=== PATIENT | female | born 1940 | race Caucasian/White ===

== ENCOUNTER → 2017-01-03 | Outpatient (REF) ==
[~2017-01-03] MED LIST: AMOXICILLIN875 MG PO; ASPIRIN 81M81 MG/TA2 PO; B-12 500 MCG PO; BETAPACEAF120 PO; COREG 25MG25 MG/TAB PO; COREG25 MG PO; DIOVAN HCT 25 M1 TA1 PO; DIOVAN/HCT 12.51 TA1 PO; ELIQUIS 5MG PO; GLUCOPHAGE1000 MG PO; KLOR-CON M2020 MEQ PO; LASIX 40MG TABL40 MG PO; LEVEMIR FLEX100 U/ML SQ; TRULICITY1.5 MG/0.5 SQ; TYLENOL 325MG325 MG PO; VITAMIN D31000 IU PO; ZYLOPRIM 300MG300 MG PO
[2017-01-03 11:41] LABS: BASO # 0.1 (0.0-0.2); BASO % 0.6 % (0.0-2.0); EOS # 0.1 (0.0-0.7); EOS % 1.4 % (0-4.0); GRAN # 6.5 (1.4-6.5); HEMOGLOBIN 11.2 g/dl (12.5-16.0); LYMPH # 0.6 (1.2-3.4); LYMPH % 8.1 % (20.0-51.0); MEAN CELL VOLUME 92 fl (80.0-100.0); MEAN CORPUSCULAR HEMOGLOBIN 29 pg (27.0-31.0); MEAN CORPUSCULAR HGB CONC 31 g/dl (33.0-37.0); MEAN PLATELET VOLUME 9.9 fl (7.4-10.4); MONO # 0.4 (0.1-0.6); MONO % 5.6 % (1.7-9.3); PLATELET COUNT 286 K/mm3 (130-400); RED BLOOD COUNT 3.89 M/mm3 (4.10-5.30); WHITE BLOOD COUNT 7.7 K/mm3 (4.8-10.8)
[2017-01-03 11:42] LABS: HEMATOCRIT 35.7 % (37.0-47.0)
[2017-01-03 12:09] LABS: CREATININE, serum 1.53 mg/dL (0.52-1.25); POTASSIUM 4.9 mmol/L (3.4-5.0)
== END ==
LOC: ZCOL.LAB 11:27
DX: I10 Essential (primary) hypertension (principal); E11.9 Type 2 diabetes mellitus without complications; M43.26 Fusion of spine, lumbar region

== ENCOUNTER → 2018-03-05 | Outpatient (CLI) | payer MEDICARE, BC | LOC: COL.RAD 10:21 | DX: N30.20 Other chronic cystitis without hematuria (principal) ==

== ENCOUNTER 2018-11-29 08:01 | Day surgery (SDC) | payer MEDICARE, BC ==
[2018-11-29] VITALS (7 sets, daily range): BP systolic 115–138; BP diastolic 58–72; PULSE 57–64; TEMP 97.8
[~2018-11-29] VITALS: Ht 170.2 cm; Wt 96.6 kg
[~2018-11-29 08:01] MED LIST changes: +DEMADEX 20MG20 M1 PO; -DIOVAN/HCT 12.51 TA1 PO; -LASIX 40MG TABL40 MG PO
[2018-11-29 08:56] LABS: HEMOGLOBIN 12.3 g/dl (12.5-16.0); MEAN CELL VOLUME 89 fl (80.0-100.0); MEAN CORPUSCULAR HEMOGLOBIN 29 pg (27.0-31.0); MEAN CORPUSCULAR HGB CONC 32 g/dl (33.0-37.0); MEAN PLATELET VOLUME 10.7 fl (7.4-10.4); PLATELET COUNT 184 K/mm3 (130-400); RED BLOOD COUNT 4.26 M/mm3 (4.10-5.30); REDCELL DISTRIBUTION WIDTH-CV 14.2 % (11.5-14.5)
[2018-11-29] MEDS ORDERED: TURMERIC500 MG PO (08:58)
[2018-11-29] MEDS ORDERED: PACERONE200 MG PO (08:59)
[2018-11-29] MEDS ORDERED: MONUROL 3 GM3 G/PKT (09:01)
[2018-11-29 09:33] LABS: INR 1.5 (0.8-3.0); PROTHROMBIN TIME 17.6 SECONDS (9.7-12.8)
[2018-11-29] MEDS ORDERED: CORDARONE200 MG/TAB PO (09:33)
[2018-11-29 09:36] LABS: CALCIUM 9.2 mg/dL (8.4-10.2); CREATININE, serum 1.72 (0.52-1.25); MAGNESIUM 2.1 mg/dL (1.6-2.3); PARTIAL THROMBOPLASTIN TIME 37.8 SECONDS (26.0-37.0); POTASSIUM 4.3 mmol/L (3.4-5.0)
--- NOTE | 2018-11-29 10:00 | NUR ---
Cardioversion complete, pt awake and alert,pwd, sr rate 60's on monitor, report from Nicholas RN. Pt drinking water with no problem. Friend at bs.
[2018-11-29 10:06] LABS: THYROID STIMULATING HORMONE 5.28 uIU/mL (0.465-4.680)
--- NOTE | 2018-11-29 11:30 | NUR ---
Pt ready for discharge. post procedure EKG has been obtained. pt has remainedin sinus rhythm with no ectopy noted. Pt is dressed and ambulatory in room with no problem, dizziness etc. IV dc'd with cath intact, dressing applied. She is transported to exit via wheelchair after reviewing f/u and discharge instructions r/t procedure and sedation. pt verbalized understanding. no concerns expressed at time of departure.
== END 2018-11-29 11:45 | disposition home or self-care (01) ==
LOC: COL.CAR 08:01
PROVIDERS: Internal Medicine Cardiovascular Disease
DX: I48.0 Paroxysmal atrial fibrillation (principal); R07.89 Other chest pain; I95.9 Hypotension, unspecified; Z85.038 Personal history of other malignant neoplasm of large intestine; E11.9 Type 2 diabetes mellitus without complications; I10 Essential (primary) hypertension; G47.33 Obstructive sleep apnea (adult) (pediatric); Z90.710 Acquired absence of both cervix and uterus; I34.0 Nonrheumatic mitral (valve) insufficiency; Z79.899 Other long term (current) drug therapy; Z87.891 Personal history of nicotine dependence; Z80.3 Family history of malignant neoplasm of breast; Z82.49 Family history of ischemic heart disease and other diseases of the circulatory system; Z88.6 Allergy status to analgesic agent; Z88.5 Allergy status to narcotic agent; Z79.01 Long term (current) use of anticoagulants; Z90.49 Acquired absence of other specified parts of digestive tract; M10.9 Gout, unspecified; M19.90 Unspecified osteoarthritis, unspecified site; M43.6 Torticollis
CPT/HCPCS: J2704; J7120

== ENCOUNTER → 2020-03-31 | Day surgery (SDC) | payer MEDICARE, BC ==
[~2020-03-31] MED LIST changes: +CALCITRIOL PO; +CARDIZEM CD 24240 MG PO; +CORDARONE200 MG/TAB PO; +FLORAJEN A20 Billion PO; +MONUROL 3 GM3 G/PKT; +MULTAQ400 MG PO; +NORVASC2.5 MG PO; +PACERONE200 MG PO; +REVATIO20 MG PO; +SYNTHROID0.05 MG/TA PO; +THERACRAN650 MG PO; +TURMERIC500 MG PO; +ULORIC40 MG PO; +ZAROXOLYN 2.52.5 MG PO
== END ==
LOC: COL.CAR 03-25 09:00
DX: I48.92 Unspecified atrial flutter (principal); E11.22 Type 2 diabetes mellitus with diabetic chronic kidney disease; I12.9 Hypertensive chronic kidney disease with stage 1 through stage 4 chronic kidney disease, or unspecified chronic kidney disease; N18.9 Chronic kidney disease, unspecified; G47.33 Obstructive sleep apnea (adult) (pediatric); R00.1 Bradycardia, unspecified; I48.0 Paroxysmal atrial fibrillation; M10.9 Gout, unspecified; R60.0 Localized edema; Z79.899 Other long term (current) drug therapy; Z79.01 Long term (current) use of anticoagulants; Z87.891 Personal history of nicotine dependence; Z80.3 Family history of malignant neoplasm of breast; Z79.4 Long term (current) use of insulin; Z88.5 Allergy status to narcotic agent; Z88.8 Allergy status to other drugs, medicaments and biological substances; Z88.3 Allergy status to other anti-infective agents; Z79.2 Long term (current) use of antibiotics
CPT/HCPCS: J1940

== ENCOUNTER 2020-09-01 09:13 | Day surgery (SDC) | payer MEDICARE, BC ==
[~2020-09-01] VITALS: Ht 170.2 cm; Wt 82.6 kg
[2020-09-01] VITALS (14 sets, daily range): BP systolic 159–199; BP diastolic 46–101; PULSE 40–62; TEMP 97.3–98.1
[~2020-09-01 09:13] MED LIST changes: -CALCITRIOL PO; -CARDIZEM CD 24240 MG PO; -FLORAJEN A20 Billion PO; -MULTAQ400 MG PO; -NORVASC2.5 MG PO; -REVATIO20 MG PO; -SYNTHROID0.05 MG/TA PO; -THERACRAN650 MG PO; -ULORIC40 MG PO; -ZAROXOLYN 2.52.5 MG PO
[2020-09-01 10:08] LABS: BASO % 0.9 % (0.0-2.0); EOS # 0.1 (0.0-0.7); EOS % 1.7 % (0-4.0); GRAN # 2.4 (1.4-6.5); GRAN % 67.6 % (42.2-75.2); HEMOGLOBIN 11.1 g/dl (12.5-16.0); LYMPH # 0.7 (1.2-3.4); LYMPH % 18.6 % (20.0-51.0); MEAN CELL VOLUME 81 fl (80.0-100.0); MEAN CORPUSCULAR HEMOGLOBIN 25 pg (27.0-31.0); MEAN CORPUSCULAR HGB CONC 31 g/dl (33.0-37.0); MEAN PLATELET VOLUME 9.9 fl (7.4-10.4); MONO # 0.4 (0.1-0.6); MONO % 10.9 % (1.7-9.3); PLATELET COUNT 192 K/mm3 (130-400); RED BLOOD COUNT 4.41 M/mm3 (4.10-5.30); REDCELL DISTRIBUTION WIDTH-CV 17.5 % (11.5-14.5)
[2020-09-01 10:09] LABS: HEMATOCRIT 35.8 % (37.0-47.0)
[2020-09-01 10:15] LABS: INR 1.1 (0.8-3.0); PROTHROMBIN TIME 11.9 SECONDS (9.7-12.8)
[2020-09-01] MEDS ORDERED: CORDARONE200 MG/TAB PO (10:18)
[2020-09-01 10:20] LABS: CALCIUM 8.8 mg/dL (8.4-10.2); CREATININE, serum 1.94 (0.52-1.25); POTASSIUM 3.9 mmol/L (3.4-5.0)
[2020-09-01] MEDS ORDERED: ULORIC40 MG PO (10:24)
[2020-09-01] MEDS ORDERED: SYNTHROID0.05 MG/TA PO (10:25)
[2020-09-01] MEDS ORDERED: NORVASC2.5 MG PO (10:25)
[2020-09-01] MEDS ORDERED: CALCITRIOL PO (10:26)
[2020-09-01] MEDS ORDERED: FLORAJEN A20 Billion PO (10:27)
[2020-09-01] MEDS ORDERED: THERACRAN650 MG PO (10:27)
--- NOTE | 2020-09-01 11:54 | NUR ---
SEE MERGE DOCUMENTATION FOR MEDICATION ADMINISTRATION AND INTRA/POST PROCEDURE SEDATION ASSESSMENTS.
--- NOTE | 2020-09-01 12:58 | NUR ---
Pt. back from PACU, status post heart cath and pacemaker. No s/s hematoma to left chest. Pt. alert and able to answer all questions. Pt. able to get OOB to bathroom to void. Pt.'s BP elevated, CHRIS Marrero notified. New medications for BP meds plan to be given, per Elida's orders.
--- NOTE | 2020-09-01 18:00 | NUR ---
Post-op checks completed, pt.'s post-op status WNL. Pacemaker site C/D/I, free of any hardness to site and free of warmth. Pt. reports mild discomfort to left shoulder but denies PRN tylenol at this time. +CSM, +PP.
--- NOTE | 2020-09-01 19:01 | NUR ---
Pt.'s BP remains elevated. CHRIS Marrero attempted to be called, but pager did not go through on the phone. Oncoming BAM Gao made aware.
--- NOTE | 2020-09-01 19:29 | NUR ---
reported bp of 176/[address] simpson , orders recieved for biostrolol dose now and then daily.
--- NOTE | 2020-09-01 21:06 | NUR ---
NEW BP MEDS GIVEN FOR HYPERTENSION TONIGHT, PT V/U OF MEDS.
[2020-09-02 00:26] VITALS: BP 139/55; PULSE 61; TEMP 98.4
[2020-09-02 05:27] VITALS: BP 143/58; PULSE 58; TEMP 98
--- NOTE | 2020-09-02 05:40 | NUR ---
rested through the night without incident. Dsg to rt upper chest c/d/i.
--- NOTE | 2020-09-02 06:50 | NUR ---
Bedside shift report complete, report received from BAM Gao. Pt. OOB w/ standby assist using cane to get to chair. Pt. tolerated ambulation well. Pt makes needs known. Pt sitting up and calling for breakfast at this time. Call light in reach, safety maintained.
[2020-09-02 07:27] VITALS: BP 162/60; PULSE 60; TEMP 98.1
--- NOTE | 2020-09-02 08:12 | NUR ---
PT. progressing with plan of care. Pt. OOB to chair eating breakfast. Pt. inquiring if Dr. Lindsay will round on patient today. This RN reports the PA or Dr. Lindsay will come see her today and discuss her plan of care. Pacemaker site to L chest c/d/i.
[2020-09-02] MEDS ORDERED: REVATIO20 MG PO (10:07)
[2020-09-02] MEDS ORDERED: MULTAQ400 MG PO (10:09)
[2020-09-02] MEDS ORDERED: CARDIZEM CD 24240 MG PO (10:10)
--- NOTE | 2020-09-02 10:24 | NUR ---
MERT met with the patient to discuss discharge plan. The patient lives alone in [place]. She reports independence with ADLs and has two canes and a walker. The patient's PCP is Dr. Daniel Lim and she receives her medications from [facility]. She reports no difficulties obtaining her meds. The patient does not have a DPOA-HC in EMR, but she states that she does have one completed and that she may have a copy in her car. She states that her DPOA-HC is her friend, Samy Marsh (ph#[phone]). The patient plans to return home upon discharge. She states that Samy will be transporting her home. No additional needs at this time. *Discharge plan: home*
[2020-09-02 11:45] LABS: CALCIUM 9.1 mg/dL (8.4-10.2); CREATININE, serum 1.77 (0.52-1.25); POTASSIUM 3.9 mmol/L (3.4-5.0)
[2020-09-02 11:54] LABS: BASO % 0.6 % (0.0-2.0); EOS # 0.1 (0.0-0.7); EOS % 1.2 % (0-4.0); GRAN # 3.9 (1.4-6.5); GRAN % 79.5 % (42.2-75.2); HEMATOCRIT 41.4 % (37.0-47.0); HEMOGLOBIN 12.8 g/dl (12.5-16.0); LYMPH # 0.5 (1.2-3.4); LYMPH % 10.8 % (20.0-51.0); MEAN CELL VOLUME 82 fl (80.0-100.0); MEAN CORPUSCULAR HEMOGLOBIN 25 pg (27.0-31.0); MEAN CORPUSCULAR HGB CONC 31 g/dl (33.0-37.0); MEAN PLATELET VOLUME 10.2 fl (7.4-10.4); MONO # 0.4 (0.1-0.6); MONO % 7.3 % (1.7-9.3); PLATELET COUNT 215 K/mm3 (130-400); RED BLOOD COUNT 5.04 M/mm3 (4.10-5.30); REDCELL DISTRIBUTION WIDTH-CV 17.7 % (11.5-14.5)
[2020-09-02 12:06] VITALS: BP 129/62; PULSE 61; TEMP 97.7
--- NOTE | 2020-09-02 13:20 | NUR ---
Pt. discharged home. IV removed,site c/d/i. Pt. agreeable with plan of care as far as folliwng up with PCP and Cardiology. Pt. agreeable with all discharge instructions and all questions answered. Pt. left unit with JORJE Womack.
== END 2020-09-02 13:45 | disposition home or self-care (01) ==
LOC: COL.CAR 09:13 → MEDICAL 13:17 → COL.CAR 09-02 13:45
PROVIDERS: Internal Medicine Cardiovascular Disease
DX: R00.1 Bradycardia, unspecified (principal); I89.0 Lymphedema, not elsewhere classified; I48.0 Paroxysmal atrial fibrillation; I27.20 Pulmonary hypertension, unspecified; I10 Essential (primary) hypertension; L81.9 Disorder of pigmentation, unspecified; L85.9 Epidermal thickening, unspecified; N28.9 Disorder of kidney and ureter, unspecified; Z79.01 Long term (current) use of anticoagulants; Z85.038 Personal history of other malignant neoplasm of large intestine; Z79.82 Long term (current) use of aspirin; Z79.899 Other long term (current) drug therapy
CPT/HCPCS: OP; C1785; C1894; C1898; J0690; J1815; J2250; J3010; J7030

== ENCOUNTER 2020-12-23 08:40 | Inpatient (IN) | payer MEDICARE, BC ==
[~2020-12-23] VITALS: Wt 85.3 kg
[2020-12-23] VITALS (8 sets, daily range): BP systolic 131–157; BP diastolic 47–74; PULSE 62–74; TEMP 97.4–98
[~2020-12-23 08:40] MED LIST changes: +CALCITRIOL PO; +CARDIZEM CD 24240 MG PO; +FLORAJEN A20 Billion PO; +MULTAQ400 MG PO; +NORVASC2.5 MG PO; +REVATIO20 MG PO; +SYNTHROID0.05 MG/TA PO; +THERACRAN650 MG PO; +ULORIC40 MG PO
[2020-12-23] MEDS ORDERED: ZAROXOLYN 2.52.5 MG PO (09:49)
[2020-12-23 10:06] LABS: BASO % 0.8 % (0.0-2.0); EOS # 0.1 K/mm3 (0.0-0.7); EOS % 2.3 % (0-4.0); GRAN # 2.9 K/mm3 (1.4-6.5); GRAN % 74.2 % (42.2-75.2); HEMOGLOBIN 10.2 g/dl (12.5-16.0); LYMPH # 0.5 K/mm3 (1.2-3.4); LYMPH % 13.4 % (20.0-51.0); MEAN CELL VOLUME 84 fl (80.0-100.0); MEAN CORPUSCULAR HEMOGLOBIN 26 pg (27.0-31.0); MEAN CORPUSCULAR HGB CONC 32 g/dl (33.0-37.0); MEAN PLATELET VOLUME 9.9 fl (7.4-10.4); MONO # 0.4 K/mm3 (0.1-0.6); PLATELET COUNT 231 K/mm3 (130-400); RED BLOOD COUNT 3.86 M/mm3 (4.10-5.30); REDCELL DISTRIBUTION WIDTH-CV 15.9 % (11.5-14.5)
[2020-12-23 10:07] LABS: HEMATOCRIT 32.4 % (37.0-47.0)
[2020-12-23 10:22] LABS: ALBUMIN 3.5 gm/dL (3.4-4.8); BILIRUBIN,TOTAL 0.5 mg/dL (0.2-1.2); CALCIUM 9.4 mg/dL (8.4-10.2); CREATININE, serum 3.25 mg/dL (0.57-1.11); POTASSIUM 3.7 mmol/L (3.5-4.5); TOTAL PROTEIN 7.1 gm/dL (6.2-8.1)
--- NOTE | 2020-12-23 11:15 | NUR ---
Patient going down to OR for HDC placement at this time, consent signed, patient has been NPO, friend present in the room
--- NOTE | 2020-12-23 12:30 | NUR ---
Patient arrived back to room 354 from OR, she had right side dialysis catheter placed, dressing C/D/I, patient is drowsy but arousable and oriented x3, vital signs stable, plans for dialysis this afternoon, she has some ice water to sip on and denies other needs at this time
--- NOTE | 2020-12-23 12:39 | NUR ---
patient returned to Medical room 354 from OR at this time, alert/oriented, vital signs stable, right HDC dressing C/d/I
--- NOTE | 2020-12-23 18:38 | NUR ---
PATIENT TOLERATED HER 1ST HD TX WITH 1L OF FLUID REMOVED TODAY. NEXT PLANNED HD TX TOMORROW, Sunday12/24/20 @ 0800.
--- NOTE | 2020-12-23 22:38 | NUR ---
PT IS MOVING INDEPENDENTLY FROM BED TO RECLINER TO BATHROOM. PT WAITED TIL ALMOST 2000 FOR FOOD TRAY. PT IS PLEASANT AND COOPERATIVE. PT TOOK ALL MEDICATIONS PRESCRIBED. PT STATED WANTED TO GET SLEEP DUE TO LONG DAY. CALL LIGHT IN REACH, NO OTHER NEEDS AT THIS TIME.
[2020-12-23 23:11] LABS: HEPATITIS B SURFACE ANTIBODY <2.0 (()); HEPATITIS B SURFACE ANTIGEN Negative (Negative); HEPATITIS C VIRUS ANTIBODY Negative (Negative)
[2020-12-24 00:12] VITALS: BP 140/46; PULSE 72; TEMP 98.7
--- NOTE | 2020-12-24 05:18 | NUR ---
PT REQUESTED TO BE LEFT ALONE MUCH POSSIBLE TONIGHT TO GET ADEQUATE SLEEP. PT REFUSED 0400 VITALS AT 0000. TOLD PT THAT WILL COME IN AT 0600 WITH MORNING MEDS, PT AGREEABLE. PT TOOK ALL MEDICATIONS, HAD UNEVENTFUL NIGHT. CALL LIGHT IN REACH, NO OTHER NEEDS AT THIS TIME.
[2020-12-24 07:35] VITALS: BP 158/70; PULSE 73; TEMP 98
[2020-12-24 07:39] LABS: EOS # 0.1 K/mm3 (0.0-0.7); EOS % 3.1 % (0-4.0); GRAN # 3.2 K/mm3 (1.4-6.5); GRAN % 76.1 % (42.2-75.2); HEMOGLOBIN 11.1 g/dl (12.5-16.0); LYMPH # 0.5 K/mm3 (1.2-3.4); MEAN CELL VOLUME 83 fl (80.0-100.0); MEAN CORPUSCULAR HEMOGLOBIN 27 pg (27.0-31.0); MEAN CORPUSCULAR HGB CONC 32 g/dl (33.0-37.0); MEAN PLATELET VOLUME 9.7 fl (7.4-10.4); MONO # 0.4 K/mm3 (0.1-0.6); MONO % 8.3 % (1.7-9.3); PLATELET COUNT 252 K/mm3 (130-400); RED BLOOD COUNT 4.17 M/mm3 (4.10-5.30)
[2020-12-24 07:44] LABS: HEMATOCRIT 34.5 % (37.0-47.0)
[2020-12-24 08:07] LABS: ALBUMIN 3.4 gm/dL (3.4-4.8); CALCIUM 10.1 mg/dL (8.4-10.2); CREATININE, serum 2.49 mg/dL (0.57-1.11); PHOSPHOROUS 2.9 mg/dL (2.3-4.7); POTASSIUM 3.8 mmol/L (3.5-4.5)
--- NOTE | 2020-12-24 11:08 | NUR ---
PATIENT TOLERATED HER 2ND HD TX WITH 2L FLUID REMOVAL TODAY. NEXT PLANNED HD TX TOMORROW, Sunday12/25/20 @ 0800.
[2020-12-24 11:22] VITALS: BP 146/80; PULSE 61; TEMP 97.6
--- NOTE | 2020-12-24 15:41 | NUR ---
workers' compensation hearings officer met with patient to discuss discharge plan.Samy along with the patient's sister Samara ([phone]) present at bedside.Patient states that she lives at home alone. Patient reports that she is fully independent with her activities of daily living and she uses canes to assist with mobility. Patient reports to having a walker as well that she uses prn and has no O2 needs. PCP is Dr. Lim and she utilizes [facility] pharmacy for perscriptions with no cost difficulty. Patient reports that she does have a DPOA-HC established and the Samy is listed as an agent. Samy states he has a copy of it but is unsure of where it is at. ' team is hopeful to get the patient started at the [place] location until an opening at the [facility] location opens up. The [place] team has offered the patient for them to arrange transportation to the [place] location. Discharge plan: Home with OP dialysis
[2020-12-24 16:43] VITALS: BP 148/61; PULSE 66; TEMP 98.2
--- NOTE | 2020-12-24 19:16 | NUR ---
PT SITTING IN BEDSIDE RECLINER. CALL LIGHT IN REACH. NO COMPLAINTS OF PAIN. PT IS PLEASANT.
[2020-12-24 19:18] VITALS: BP 137/51; PULSE 60; TEMP 97.8
--- NOTE | 2020-12-24 21:55 | NUR ---
PT ASSESSMENT COMPLETE. PT IS PLEASANT AND COOPERATIVE. PT TOOK ALL MEDICATIONS EXCEPT COLACE AND 2 UNITS OF NOVOLOG. PT STATED "I JUST ATE AND THAT IS WHY IT IS HIGH. I ONLY WANT THE LEVEMIR." PT LEGS ARE STILL SWOLLEN, THIS RN HAS NOTICED CONSIDERABLE DIFFERENCE IN LEGS SINCE LAST NIGHT. PT STATED SHE THOUGHT A INFORMATICA ARCHITECT WOULD OF VISITED TODAY TO HELP GO OVER HOW TO COOK AT HOME WITH A LOW SODIUM DIET. PT EXPRESSED SOME CONCERN OVER NEW DIET AND STICKING TO THE PLAN OF CARE. PT STATED SHE FELT A DIFFERENCE ALREADY AFTER 2 ROUNDS OF DIAYLSIS. SHE STATED THAT SHE WANTED TO DO EVERYTHING RIGHT IF SHE WAS TO BE DOING THIS TREATMENT PLAN IN ORDER TO REMAIN HEALTHY SHE CAN BE. BED IN LOWEST POSITION, WHEELS LOCKED. CALL LIGHT IN REACH. PT DENIES ANY PAIN. NO OTHER NEEDS. PT REQUESTED TO SLEEP THROUGH NIGHT AND SKIP MIDNIGHT VITALS.
[2020-12-25 04:19] VITALS: BP 140/55; PULSE 72; TEMP 97.9
--- NOTE | 2020-12-25 05:38 | NUR ---
PT SLEPT MAJORITY OF NIGHT. UNEVENTFUL. PT UNDERSTANDS PLAN OF CARE, SHOWS INTEREST IN RENAL DIET AND MAKING APPROPRIATE CHANGES IN DIET TO ACCOMADATE DIAYLSIS. PT PLEASANT AND DENIES ANY PAIN. WHEELS LOCKED, BED IN LOWEST POSITION, CALL LIGHT IN REACH, NO OTHER NEEDS AT THIS TIME.
[2020-12-25 07:17] VITALS: BP 146/61; PULSE 67; TEMP 97.7
[2020-12-25 07:24] LABS: ALBUMIN 3.6 gm/dL (3.4-4.8); CALCIUM 10.2 mg/dL (8.4-10.2); CREATININE, serum 2.48 mg/dL (0.57-1.11); PHOSPHOROUS 3.2 mg/dL (2.3-4.7); POTASSIUM 3.8 mmol/L (3.5-4.5)
[2020-12-25 07:48] LABS: BASO % 0.9 % (0.0-2.0); EOS # 0.2 K/mm3 (0.0-0.7); EOS % 4.1 % (0-4.0); GRAN # 3.1 K/mm3 (1.4-6.5); GRAN % 69.6 % (42.2-75.2); HEMATOCRIT 37.6 % (37.0-47.0); HEMOGLOBIN 11.7 g/dl (12.5-16.0); LYMPH # 0.7 K/mm3 (1.2-3.4); LYMPH % 16.9 % (20.0-51.0); MEAN CELL VOLUME 86 fl (80.0-100.0); MEAN CORPUSCULAR HEMOGLOBIN 27 pg (27.0-31.0); MEAN CORPUSCULAR HGB CONC 31 g/dl (33.0-37.0); MEAN PLATELET VOLUME 9.9 fl (7.4-10.4); MONO # 0.4 K/mm3 (0.1-0.6); PLATELET COUNT 244 K/mm3 (130-400); REDCELL DISTRIBUTION WIDTH-CV 16.3 % (11.5-14.5)
[2020-12-25] MEDS ORDERED: DEMADEX 20MG20 M1 PO (12:11)
[2020-12-25 12:34] VITALS: BP 146/68; PULSE 62; TEMP 97.8
--- NOTE | 2020-12-25 12:35 | NUR ---
Patient tolerated HD tx with 2L of fluid removed. Next planned HD tx on Sunday12/27/20 @ [facility] @ [place] @ 2619.
--- NOTE | 2020-12-25 15:30 | NUR ---
PT ALERT AND ORIENTED. PT LUNGS CLEAR TO AUSCULTATION. S1,S2 HEARD. PT ABLE TO AMBULATE INDEPENDENLTY WITH CANES. PT HAS BILATERAL LOWER EXTREMITY EDEMA 1+. PT PULSES 2+ IN ALL EXTREMITIES. PT DENIES NEEDS, ABLE TO CONVERSE FREELY.
--- NOTE | 2020-12-25 15:32 | NUR ---
PT DISCHARGING. PT INT DISCONTINUED, HEALTH SUMMARY AND EDUCATION GIVEN TO BEST OF ABILITY. PT VISITOR AT BEDSIDE TO HELP PT. PT TO BE WHEELED OUT BY [facility] EMPLOYEE.
== END 2020-12-25 15:33 | disposition home or self-care (01) | DRG 673 ==
LOC: SDCO 08:40 → MEDICAL 08:55 → SDCO 12:00 → MEDICAL 12-25 15:33
PROVIDERS: Surgery; ADMIT Internal Medicine Nephrology
PROC: 02H633Z Insertion of Infusion Device into Right Atrium, Percutaneous Approach (ICD-10-PCS; 2020-12-23)
PROC: B5181ZA Fluoroscopy of Superior Vena Cava using Low Osmolar Contrast, Guidance (ICD-10-PCS; 2020-12-23)
PROC: 5A1D70Z Performance of Urinary Filtration, Intermittent, Less than 6 Hours Per Day (ICD-10-PCS; 2020-12-23)
PROC: 0JH63XZ Insertion of Tunneled Vascular Access Device into Chest Subcutaneous Tissue and Fascia, Percutaneous Approach (ICD-10-PCS; principal; 2020-12-23 12:00)
DX: I12.0 Hypertensive chronic kidney disease with stage 5 chronic kidney disease or end stage renal disease (principal); N18.6 End stage renal disease; E11.22 Type 2 diabetes mellitus with diabetic chronic kidney disease; M10.9 Gout, unspecified; I48.91 Unspecified atrial fibrillation; D63.1 Anemia in chronic kidney disease; E87.70 Fluid overload, unspecified; Z20.822 Contact with and (suspected) exposure to COVID-19; Z96.651 Presence of right artificial knee joint; Z85.038 Personal history of other malignant neoplasm of large intestine; Z79.4 Long term (current) use of insulin; Z23 Encounter for immunization
CPT/HCPCS: J0690; J1644; J1756; J1815; J2704; J7030

== ENCOUNTER 2021-02-08 09:07 | Day surgery (SDC) | payer MEDICARE, BC ==
[~2021-02-08] VITALS: Ht 160 cm; Wt 77.7 kg
[~2021-02-08 09:07] MED LIST changes: +ZAROXOLYN 2.52.5 MG PO
[2021-02-08] MEDS ORDERED: CARDIZEM CD 24240 MG PO (09:25)
[2021-02-08] MEDS ORDERED: MULTAQ400 MG PO (09:26)
[2021-02-08] MEDS ORDERED: REVATIO20 MG PO (09:30)
[2021-02-08] MEDS ORDERED: DEMADEX 20MG20 M1 PO (09:32)
[2021-02-08] MEDS ORDERED: D3-5050000 IU PO (09:33)
[2021-02-08 10:59] LABS: INR 1.7 (0.8-3.0); PROTHROMBIN TIME 19.1 SECONDS (9.7-12.8)
[2021-02-08 11:02] LABS: PARTIAL THROMBOPLASTIN TIME 33.3 SECONDS (26.0-37.0)
[2021-02-08 11:04] LABS: BASO # 0.1 K/mm3 (0.0-0.2); BASO % 1.5 % (0.0-2.0); EOS # 0.1 K/mm3 (0.0-0.7); EOS % 1.8 % (0.0-4.0); GRAN # 2.8 K/mm3 (1.4-6.5); HEMATOCRIT 37.5 % (37.0-47.0); HEMOGLOBIN 12.3 g/dl (12.5-16.0); LYMPH # 0.6 K/mm3 (1.2-3.4); LYMPH % 15.4 % (20.0-51.0); MEAN CELL VOLUME 87 fl (80.0-100.0); MEAN CORPUSCULAR HEMOGLOBIN 29 pg (27-31); MEAN CORPUSCULAR HGB CONC 33 g/dl (33.0-37.0); MEAN PLATELET VOLUME 9.6 fl (7.4-10.4); MONO # 0.4 K/mm3 (0.1-0.6); PLATELET COUNT 183 K/mm3 (130-400); RED BLOOD COUNT 4.29 M/mm3 (4.10-5.30)
[2021-02-08 11:07] LABS: CALCIUM 9.3 mg/dL (8.4-10.2); CREATININE, serum 3.81 mg/dL (0.57-1.11); MAGNESIUM 2.2 mg/dL (1.6-2.6)
[2021-02-08 11:22] VITALS: BP 139/75; PULSE 69; TEMP 98.6
[2021-02-08 11:27] LABS: TSH w REFLEX 3.443 uIU/mL (0.350-4.940)
[2021-02-08 12:30] VITALS: BP 123/79; PULSE 70
[2021-02-08 12:45] VITALS: BP 140/63; PULSE 70
[2021-02-08 13:00] VITALS: BP 142/69; PULSE 79
[2021-02-08] MEDS ORDERED: PACERONE400 MG PO (13:05)
--- NOTE | 2021-02-08 14:00 | NUR ---
DC instructions reviewed with pt and , both express understanding. She has tolerated PO fluids without issue. She is steady on feet in room. INT DC'd with catheter intact. She is assisted out to 's car by wheelchair.
== END 2021-02-08 14:00 | disposition home or self-care (01) ==
LOC: COL.CAR 09:07
PROVIDERS: Internal Medicine Cardiovascular Disease
DX: I48.91 Unspecified atrial fibrillation (principal); I12.9 Hypertensive chronic kidney disease with stage 1 through stage 4 chronic kidney disease, or unspecified chronic kidney disease; I27.20 Pulmonary hypertension, unspecified; E11.22 Type 2 diabetes mellitus with diabetic chronic kidney disease; N18.9 Chronic kidney disease, unspecified; G47.33 Obstructive sleep apnea (adult) (pediatric); M19.90 Unspecified osteoarthritis, unspecified site; K21.9 Gastro-esophageal reflux disease without esophagitis; E11.9 Type 2 diabetes mellitus without complications; E07.9 Disorder of thyroid, unspecified; Z79.890 Hormone replacement therapy; Z79.899 Other long term (current) drug therapy; Z79.01 Long term (current) use of anticoagulants; Z95.0 Presence of cardiac pacemaker; Z85.038 Personal history of other malignant neoplasm of large intestine
CPT/HCPCS: J2704

== ENCOUNTER → 2021-02-22 | Outpatient (CLI) | payer MEDICARE, BC ==
[~2021-02-22] MED LIST changes: +D3-5050000 IU PO; +PACERONE400 MG PO
== END ==
LOC: COL.VAS 14:07
DX: N18.6 End stage renal disease (principal); Z99.2 Dependence on renal dialysis

== ENCOUNTER 2021-03-16 09:55 | Day surgery (SDC) | payer MEDICARE, BC ==
[~2021-03-16] VITALS: Ht 167.7 cm; Wt 74.8 kg
[2021-03-16] VITALS (7 sets, daily range): BP systolic 136–149; BP diastolic 67–80; PULSE 69–73; TEMP 97.8
[2021-03-16 10:53] LABS: HEMATOCRIT 39.5 % (37.0-47.0); MEAN CELL VOLUME 89 fl (80.0-100.0); MEAN CORPUSCULAR HEMOGLOBIN 29 pg (27-31); MEAN CORPUSCULAR HGB CONC 33 g/dl (33.0-37.0); MEAN PLATELET VOLUME 9.7 fl (7.4-10.4); PLATELET COUNT 169 K/mm3 (130-400); RED BLOOD COUNT 4.42 M/mm3 (4.10-5.30); REDCELL DISTRIBUTION WIDTH-CV 15.5 % (11.5-14.5)
[2021-03-16] MEDS ORDERED: PACERONE200 MG PO (11:15)
[2021-03-16 11:17] LABS: CALCIUM 8.9 mg/dL (8.4-10.2); CREATININE, serum 3.65 mg/dL (0.57-1.11); MAGNESIUM 1.9 mg/dL (1.6-2.6)
[2021-03-16 11:25] LABS: INR 1.5 (0.8-3.0); PROTHROMBIN TIME 16.1 SECONDS (9.7-12.8)
[2021-03-16 11:28] LABS: PARTIAL THROMBOPLASTIN TIME 33.1 SECONDS (26.0-37.0)
[2021-03-16 11:37] LABS: THYROID STIMULATING HORMONE 2.162 uIU/mL (0.350-4.940)
--- NOTE | 2021-03-16 14:00 | NUR ---
Discharge instructions given to pt.Pt verbalizes understanding.INT removed,catheter tip intact.Pt escorted out via wheelchair by this nurse.
== END 2021-03-16 15:15 ==
LOC: COL.CAR 09:55
PROVIDERS: Internal Medicine Cardiovascular Disease
DX: I48.0 Paroxysmal atrial fibrillation (principal); I10 Essential (primary) hypertension; I49.5 Sick sinus syndrome; I15.0 Renovascular hypertension; E11.9 Type 2 diabetes mellitus without complications; G47.33 Obstructive sleep apnea (adult) (pediatric); Z90.10 Acquired absence of unspecified breast and nipple; Z79.899 Other long term (current) drug therapy; Z79.01 Long term (current) use of anticoagulants; Z79.890 Hormone replacement therapy; Z87.891 Personal history of nicotine dependence; Z95.0 Presence of cardiac pacemaker; Z80.3 Family history of malignant neoplasm of breast
CPT/HCPCS: J2704

== ENCOUNTER 2021-04-28 08:33 | Day surgery (SDC) | payer MEDICARE, BC ==
[~2021-04-28] VITALS: Ht 167.6 cm; Wt 71.6 kg
[2021-04-28 09:31] VITALS: BP 134/61; PULSE 76; TEMP 97.5
[2021-04-28 09:54] LABS: CALCIUM 8.8 mg/dL (8.4-10.2); CREATININE, serum 3.33 mg/dL (0.57-1.11); POTASSIUM 3.2 mmol/L (3.5-4.5)
[2021-04-28 12:45] VITALS: BP 113/44; PULSE 74; TEMP 98.4
--- NOTE | 2021-04-28 12:45 | NUR ---
PT TO BAY 6 PER CART FROM OR. RECEIVED REPORT FROM BAM RAMIREZ AND MARCI WAGNER. VS OBTAINED. REORIENTED PT TO ROOM AND CALL LIGHT. CALL LIGHT WITHIN REACH. PT DENIES ANY PAIN AT THIS TIME. WILL CONTINUE TO MONITOR PT.
[2021-04-28 13:00] VITALS: BP 129/56; PULSE 69
--- NOTE | 2021-04-28 13:00 | NUR ---
PT DESAT TO 85%. CONSISTENTLY STAYING BETWEEN 87%-89%. APPLIED 2L PER NC. PT RESPONDED WELL. O2 SATS 92-94%. PT DENIES ANY NEEDS AT THIS TIME. PT TOLERATING CRANBERRY JUICE WITHOUT DIFFICULTY. FRIEND AT BEDSIDE. WILL CONTINUE TO MONITOR PT.
[2021-04-28 13:15] VITALS: BP 122/51; PULSE 69
--- NOTE | 2021-04-28 13:15 | NUR ---
PT CONTINUES TO DENY ANY NEEDS. PT CONTINUES ON 2L PER NC. TOLERATING WELL. PT TOLERATING CRANBERRY JUICE. WILL CONTINUE TO MONITOR.
[2021-04-28 13:30] VITALS: BP 135/54; PULSE 69
--- NOTE | 2021-04-28 13:30 | NUR ---
PT DOING WELL. TOLERATING MUFFIN. DC O2 TO SEE HOW PT DOES. WILL CONTINUE TO MONITOR PT.
[2021-04-28 13:45] VITALS: BP 129/56; PULSE 69
--- NOTE | 2021-04-28 13:45 | NUR ---
PT MAINTAING O2 WITHOUT DIFFICULTY. PT STATES SHE IS READY FOR DISCHARGE.
--- NOTE | 2021-04-28 14:30 | NUR ---
IV DC'D. TOLERATED WELL.
--- NOTE | 2021-04-28 14:45 | NUR ---
DISCHARGE EDUCATION COMPLETED WITH PT. PT VERBALIZED UNDERSTANDING OF HOME AND FOLLOW UP CARE. ALL QUESTIONS ANSWERED. DISCHARGE PAPERWORK GIVEN TO PT.
--- NOTE | 2021-04-28 15:05 | NUR ---
PT OFF UNIT PER WHEELCHAIR. PT DISCHARGE TO HOME WITH FRIEND PER PERSONAL VEHICLE.
== END 2021-04-28 15:05 | disposition home or self-care (01) ==
LOC: SDCO 08:33
PROVIDERS: Surgery
DX: N18.6 End stage renal disease (principal); L02.31 Cutaneous abscess of buttock; Z79.01 Long term (current) use of anticoagulants
CPT/HCPCS: J0690; J1644; J2405; J2704; J2795; J3010; J7120

== ENCOUNTER 2021-05-31 08:06 | Day surgery (SDC) | payer MEDICARE, BC ==
[~2021-05-31] VITALS: Ht 167.6 cm; Wt 71.5 kg
[2021-05-31 08:56] VITALS: BP 135/69; PULSE 74; TEMP 96.9
--- NOTE | 2021-05-31 09:15 | NUR ---
BMP drawn and sent to lab via [facility].
[2021-05-31 09:49] LABS: CALCIUM 8.9 mg/dL (8.4-10.2); CREATININE, serum 2.36 mg/dL (0.57-1.11); POTASSIUM 3.7 mmol/L (3.5-4.5)
[2021-05-31 10:25] VITALS: BP 122/62; PULSE 75; TEMP 96.9
--- NOTE | 2021-05-31 10:25 | NUR ---
Pt returned to bay 3 post procedure. Pt ambulated with staff by side to recliner in bay. VSS-see flowsheet. Spouse present in room. Pts leg elevated and warm blankets given. Pt also given juice per request but said she will wait to eat lunch when she is discharged. Call light placed in reach.
[2021-05-31 10:30] VITALS: BP 126/66; PULSE 70
[2021-05-31 10:45] VITALS: BP 130/62; PULSE 70
--- NOTE | 2021-05-31 11:15 | NUR ---
VS remain stable-see flowsheet. Dr Lyn in to visit post procedure. Pt tolerated oral intake. IV removed, catheter tip intact and pressure dressing applied. Pt dressed independently. DC teaching completed with pt and pts spouse, verbalized understanding. Pt taken via wheelchair to private vehicle for dc with driving. Pt left with dc packet, personal belongings including 2 wooden canes.
== END 2021-05-31 11:15 | disposition home or self-care (01) ==
LOC: SDCO 08:06
PROVIDERS: Nurse Anesthetist, Certified Registered
DX: K29.70 Gastritis, unspecified, without bleeding (principal); K44.9 Diaphragmatic hernia without obstruction or gangrene; K25.9 Gastric ulcer, unspecified as acute or chronic, without hemorrhage or perforation; R13.10 Dysphagia, unspecified; I10 Essential (primary) hypertension; Z95.0 Presence of cardiac pacemaker; Z87.891 Personal history of nicotine dependence; Z79.01 Long term (current) use of anticoagulants; Z85.048 Personal history of other malignant neoplasm of rectum, rectosigmoid junction, and anus
CPT/HCPCS: J2704; J7030

== ENCOUNTER 2021-06-08 19:38 | Inpatient (IN) | payer MEDICARE, BC ==
[~2021-06-08] VITALS: Wt 70.9 kg
[2021-06-08 20:38] LABS: BASO % 0.6 % (0.0-2.0); EOS % 0.4 % (0.0-4.0); GRAN # 4.7 K/mm3 (1.4-6.5); GRAN % 87.5 % (42.2-75.2); HEMATOCRIT 42.2 % (37.0-47.0); HEMOGLOBIN 13.5 g/dl (12.5-16.0); LYMPH # 0.3 K/mm3 (1.2-3.4); LYMPH % 5.8 % (20.0-51.0); MEAN CELL VOLUME 94 fl (80.0-100.0); MEAN CORPUSCULAR HEMOGLOBIN 30 pg (27-31); MEAN CORPUSCULAR HGB CONC 32 g/dl (33.0-37.0); MEAN PLATELET VOLUME 10.1 fl (7.4-10.4); MONO # 0.3 K/mm3 (0.1-0.6); MONO % 5.3 % (1.7-9.3); PLATELET COUNT 188 K/mm3 (130-400); RED BLOOD COUNT 4.49 M/mm3 (4.10-5.30)
[2021-06-08 20:39] LABS: INR 1.7 (0.8-3.0)
[2021-06-08 20:42] LABS: PARTIAL THROMBOPLASTIN TIME 30.1 SECONDS (26.0-37.0)
[2021-06-08 20:51] LABS: ALBUMIN 3.3 gm/dL (3.4-4.8); BILIRUBIN,TOTAL 0.6 mg/dL (0.2-1.2); CALCIUM 8.3 mg/dL (8.4-10.2); CREATININE, serum 3.85 mg/dL (0.57-1.11); POTASSIUM 3.6 mmol/L (3.5-4.5); TOTAL PROTEIN 6.6 gm/dL (6.2-8.1)
[2021-06-08 22:33] VITALS: BP 137/62; PULSE 71; TEMP 97.5
[2021-06-08] MEDS ORDERED: ZOFRAN ODT4 MG PO (23:00)
[2021-06-09 01:06] LABS: COLLECTION METHOD IN
[2021-06-09 01:14] LABS: PH 5 (5-8); SQUAMOUS EPITHELIAL None Seen /hpf (0-10); URINE APPEARANCE Turbid (CLEAR/HAZY); URINE BACTERIA Many /hpf (NONE SEEN); URINE BILIRUBIN Negative (NEGATIVE); URINE BLOOD 2+ (NEGATIVE); URINE GLUCOSE 1+ (NEGATIVE); URINE KETONE Negative (NEGATIVE); URINE LEUKOCYTE ESTERASE 2+ (NEGATIVE); URINE NITRATE Negative (NEGATIVE); URINE PROTEIN(semi-quant) 2+ (NEGATIVE); URINE RBC >50 /hpf (0-2); URINE UROBILINOGEN Negative (NEGATIVE)
[2021-06-09 01:16] LABS: URINE COLOR Straw (YELLOW)
--- NOTE | 2021-06-09 02:34 | NUR ---
PATIENT UP TO ROOM 344. ALERT AND ORIENTED. SLIDE BOARD TRANSFER TO BED. YELLOW GOWN APPLIED, KIMBERLEE STRONG, ROY[place]. MED RX COMPLETED. ADMISSION ASSESSMENTS COMPLETED. CALL PLACED TO JONES, SEE ORDERS. CALL PLACED TO XAVIER VILA, AGREEABLE TO ORDERS AND ORDER FOR HIP PROTOCOL. PRN DILAUDID AND PERCOCET ALTERNATING FOR PAIN PER EMAR. R ARM RESTRICT FOR NEW, NON MATURE UPPER ARM FISTULA. IV TO L AC PATENT AND FLUSHES EASILY. REMAINS ON 2 L O2 VIA NC. 16 F QUIGLEY INSERTED BY RAVINDRA KUHN, 10 MLS IN BALLOON. UA COLLECTED AT THIS TIME, URINE WAS CLOUDY/MILKY WHITE/YELLOW. PATIENT HAS SEVERAL SKIN ISSUES, SEE ADMISSION ASSESSMENT. PATIENT BECAME NAUSEATED AND HAD SEVERAL EPISODES OF EMESIS, WITH MEDIUM AMOUNT OF YELLOW EMESIS. CALL TO BEDROS AND ORDER FOR ZOFRAN GIVEN. COMPLETE BEDCHANGE DONE AT THIS TIME. PATIENT CURRENTLY RESTING IN BED, CALL LIGHT IN REACH. RR EVEN AND UNLABORED.
[2021-06-09 03:35] VITALS: BP 128/54; PULSE 70; TEMP 97.6
[2021-06-09 05:27] LABS: INR 1.7 (0.8-3.0); PROTHROMBIN TIME 19.1 SECONDS (9.7-12.8)
[2021-06-09 05:28] LABS: HEMATOCRIT 42.9 % (37.0-47.0); MEAN CELL VOLUME 93 fl (80.0-100.0); MEAN CORPUSCULAR HEMOGLOBIN 30 pg (27-31); MEAN CORPUSCULAR HGB CONC 33 g/dl (33.0-37.0); MEAN PLATELET VOLUME 10.5 fl (7.4-10.4); PLATELET COUNT 181 K/mm3 (130-400); RED BLOOD COUNT 4.61 M/mm3 (4.10-5.30); REDCELL DISTRIBUTION WIDTH-CV 15.1 % (11.5-14.5)
[2021-06-09 05:38] LABS: ALBUMIN 3.3 gm/dL (3.4-4.8); BILIRUBIN,TOTAL 0.7 mg/dL (0.2-1.2); CALCIUM 8.5 mg/dL (8.4-10.2); CREATININE, serum 3.89 mg/dL (0.57-1.11); POTASSIUM 3.8 mmol/L (3.5-4.5); TOTAL PROTEIN 6.6 gm/dL (6.2-8.1)
[2021-06-09 07:10] LABS: BAND 14 % (0-10); LYMPHOCYTE 3 % (20.0-51.0); NEUTROPHILS 78 % (42.0-75.2)
[2021-06-09 07:11] LABS: ANISOCYTOSIS 1+; PLATELET ESTIMATE NORMAL (NORMAL); TOXIC GRANULATION PRESENT
[2021-06-09 08:00] VITALS: BP 125/56; PULSE 72; TEMP 97.5
--- NOTE | 2021-06-09 08:00 | NUR ---
PATIENT IS ORIENTED BUT DROWSY THIS AM. VSS ON TELE. RIVER TESTER RECENTLY GAVE HER PAIN MEDS, NO C/O PAIN OR NAUSEA AT THIS TIME. PATIENT WAS NPO FOR POSSIBLE SURGERY TODAY, WHICH IS NOW PENDING 06/10 DUE TO HOME DOSE OF ELIQUIS. ADA DIET. LEFT AC IV TO INT. QUIGLEY TO DD WITH THICK, MILKY YELLOW URINE THAT IS HAZY. DIALYSIS MON & FRI. RIGHT HD CATH INPLACE. RIGHT ARM RESTRICT FOR FURTURE FISTULA. ON CONTACT FOR PENDING C-DIFF. SCD'S TO BLE. HEAD TO TOE ASSESSMENT COMPLETE. LOTS OF SKIN ISSUES, SEE ASSESSMENT. NO OTHER NEEDS AT THIS TIME. CALL LIGHT IN REACH. BED ALARM ON.
--- NOTE | 2021-06-09 10:14 | NUR ---
Initial visit attempt; Patient resting with nurses attending. Residential Aide sent one of her cards with a nurse for [facility] wishing her God's blessings and letting her know Spiritual Care is available when she is feeling better.
--- NOTE | 2021-06-09 10:44 | NUR ---
MERT and SW student met with the patient and her friend, Samy Marsh (ph#[phone]), to discuss discharge plan. The patient lives in [place]. She states that Samy lives with her. She reports independence with ADLs and does not have any DME. The patient's PCP is Dr. Daniel Lim and she receives her medications from [facility]. The patient does not have a DPOA-HC in EMR, but she states that she does have one completed and that the form is at home. She states that she designated Samy. Samy states that he can bring the form to the hospital tomorrow. The patient states that she is not , does not have any children, and her parents are . She states she has three siblings: Samara (ph#[phone]), Sima, and Monisha. The patient has a hip fracture. She also receives dialysis on Sunday and Fridays at 1045 at the [facility]. A [place] public transportation bus takes her to dialysis. MERT discussed post-acute rehab upon discharge. The patient is interested in rehab and would prefer our [facility]. The patient states that the bus that takes her to [place] is old and rickety, so she does not think she would be able to endure the almost hour drive on the bus to [place] upon discharge. The patient would prefer a facility in [place], she was not interested in trying [place] [facility]. The patient's second preference is [facility]. MERT consulted IPR Director. MERT contacted and will fax a referral to Nikole at [facility]. Awaiting screens. *Discharge plan: post-acute rehab*
--- NOTE | 2021-06-09 10:52 | NUR ---
Social Work student faxed SNF referral to Nikole at [facility].
[2021-06-09 11:31] VITALS: BP 96/44; PULSE 69; TEMP 97.6
--- NOTE | 2021-06-09 12:20 | NUR ---
ROUNDED, SEE ORDERS. TELE INPLACE
--- NOTE | 2021-06-09 14:20 | NUR ---
PATIENT CALLED OUT AND REPORTED SHE BECAME SICK AND VOMITED. NOTED APPROX 200CC OF DARK GREEN EMESIS. GAVE PRN IV ZOFRAN. PATIENT NOW SITTING UP IN BED TALKING ON PHONE. NO OTHER NEEDS AT THIS TIME.
[2021-06-09 15:24] VITALS: BP 115/51; PULSE 71; TEMP 97.6
[2021-06-09 20:40] VITALS: BP 122/51; PULSE 74; TEMP 97.6
--- NOTE | 2021-06-09 20:55 | NUR ---
PT REPORTS EMESIS, HAS SMALL AMOUNT OF GREEN EMESIS IN BASIN. DID GET HD CATH DRSG WET, CHANGED AT THIS TIME. PT HAS BANDAIDS TO RT HAND FINGER AND LEFT HAND FINGER. RT SHOULDER WITH BRUISE FROM FALL. DENIES PAIN. HS MEDS GIVEN. SCDS ON. QUIGLEY WITH MINIMAL CLOUDY YELLOW URINE TO BSD. HAS NIKI AV FISTULA WITH GOOD BRUIT/THRILL. DIALYSIS ON -. WILL BE NPO AFTER MIDNIGHT FOR SURGERY.
[2021-06-09 23:55] VITALS: BP 123/50; PULSE 70; TEMP 97.6
--- NOTE | 2021-06-10 02:01 | NUR ---
PT ASKING FOR PAIN MEDS, MEDICATED WITH PERCOCET 1 TAB PO AT THIS TIME FOR LEFT HIP PAIN.
[2021-06-10 03:41] VITALS: BP 136/56; BP 236/56; PULSE 71; TEMP 97.8
--- NOTE | 2021-06-10 06:46 | NUR ---
HAVING GREEN EMESIS. QUIGLEY WITH 200CC FOUL SMELLING YELLOW URINE.
[2021-06-10 08:00] VITALS: BP 105/76; PULSE 52; TEMP 97.6
--- NOTE | 2021-06-10 08:00 | NUR ---
PATIENT IS ORIENTED BUT DROWSY. VSS ON TELE. DENIES PAIN OR NAUSEA AT REST. NPO FOR POSSIBLE SURGERY LATER THIS AM. LABS PENDING. AM BS OF 204. LEFT AC IV TO INT. RIGHT HD CATH INPLACE. CONSENT ON CHART. HEAD TO TOE ASSESSMENT COMPLETE. SEVERAL SKIN ISSUES, SEE ASSESSMENT. AM MEDS GIVEN WITH SIPS. CONTACT PRECAUTIONS INPLACE. NO OTHER NEEDS AT THIS TIME. CALL LIGHT IN REACH.
--- NOTE | 2021-06-10 09:17 | NUR ---
Initial visit; Patient thanked Delivery Coordinator for talking with her and offering prayer and God's blessings. Patient's significant other just outside her room, Delivery Coordinator gave him her card letting him know of the availability of spiritual care. He thanked Delivery Coordinator.
[2021-06-10 09:38] LABS: HEMATOCRIT 44.5 % (37.0-47.0); HEMOGLOBIN 13.8 g/dl (12.5-16.0); MEAN CELL VOLUME 97 fl (80.0-100.0); MEAN CORPUSCULAR HEMOGLOBIN 30 pg (27-31); MEAN CORPUSCULAR HGB CONC 31 g/dl (33.0-37.0); MEAN PLATELET VOLUME 10.3 fl (7.4-10.4); PLATELET COUNT 173 K/mm3 (130-400); RED BLOOD COUNT 4.59 M/mm3 (4.10-5.30); REDCELL DISTRIBUTION WIDTH-CV 15.6 % (11.5-14.5)
[2021-06-10 09:51] LABS: INR 1.6 (0.8-3.0); PROTHROMBIN TIME 18.2 SECONDS (9.7-12.8)
[2021-06-10 09:58] LABS: CALCIUM 8.6 mg/dL (8.4-10.2); CREATININE, serum 4.56 mg/dL (0.57-1.11); PHOSPHOROUS 6.9 mg/dL (2.3-4.7); POTASSIUM 4.4 mmol/L (3.5-4.5)
[2021-06-10 10:14] LABS: BAND 4 % (0-10); LYMPHOCYTE 5 % (20.0-51.0); NEUTROPHILS 84 % (42.0-75.2); PLATELET ESTIMATE NORMAL (NORMAL); POLYCHROMASIA 1+
--- NOTE | 2021-06-10 11:45 | NUR ---
The patient's INR remains elevated. Surgery was postponed until tentatively tomorrow. SW notified and faxed updates to Nikole at [facility]. *Discharge plan: post-acute rehab*
--- NOTE | 2021-06-10 11:48 | NUR ---
Nikole, at [facility], states that they have accepted the patient.
--- NOTE | 2021-06-10 12:15 | NUR ---
AT BEDSIDE TO TALK WITH PATIENT & FAMILY. PLAN IS TO RESCHEDULE SURGERY FOR 5/7 PENDING INR.
[2021-06-10 12:39] VITALS: BP 110/49; PULSE 79; TEMP 97.6
--- NOTE | 2021-06-10 12:40 | NUR ---
ANESTHESIA AT BEDSIDE TO CONSULT ON PENDING SURGERY
--- NOTE | 2021-06-10 13:23 | NUR ---
PATIENT GOING TO DIALYSIS
--- NOTE | 2021-06-10 16:28 | NUR ---
PATIENT TOLERATED HD TX WITH 1.3L OF FLUID OFF. NEXT PLANNED HD TX ON Sunday06/13/21 @ 0830.
[2021-06-10 16:44] VITALS: BP 139/64; PULSE 69; TEMP 97.8
[2021-06-10 19:35] VITALS: BP 113/47; PULSE 71; TEMP 98.1
[2021-06-10 19:43] LABS: INR 1.5 (0.8-3.0); PROTHROMBIN TIME 17.3 SECONDS (9.7-12.8)
--- NOTE | 2021-06-10 20:33 | NUR ---
SPOKE WITH DR GOLDMAN REGARDING PTS INR=1.5. ORDER FOR ONE TIME DOSE OF VIT K 1MG IV AND REPEAT INR IN AM @0500.
--- NOTE | 2021-06-10 21:18 | NUR ---
PT DENIES PAIN, IV VIT K INFUSING TO LEFT AC INT WITHOUT PROBLEM. BRUSHES TEETH, DENIES NAUSEA. HS MEDS GIVEN.
[2021-06-10 23:39] VITALS: BP 107/52; PULSE 86; TEMP 97.6
[2021-06-11] VITALS (8 sets, daily range): BP systolic 105–136; BP diastolic 46–58; PULSE 62–77; TEMP 97.7–98.2
--- NOTE | 2021-06-11 04:00 | NUR ---
PT ASKING ABOUT SURGERY TIME. HAS BEEN NPO SINCE MIDNIGHT.
[2021-06-11 05:25] LABS: HEMATOCRIT 41.5 % (37.0-47.0); HEMOGLOBIN 13.1 g/dl (12.5-16.0); MEAN CELL VOLUME 96 fl (80.0-100.0); MEAN CORPUSCULAR HEMOGLOBIN 30 pg (27-31); MEAN CORPUSCULAR HGB CONC 32 g/dl (33.0-37.0); MEAN PLATELET VOLUME 9.9 fl (7.4-10.4); PLATELET COUNT 176 K/mm3 (130-400); RED BLOOD COUNT 4.34 M/mm3 (4.10-5.30); REDCELL DISTRIBUTION WIDTH-CV 15.6 % (11.5-14.5)
[2021-06-11 05:29] LABS: INR 1.5 (0.8-3.0); PROTHROMBIN TIME 16.9 SECONDS (9.7-12.8)
--- NOTE | 2021-06-11 05:42 | NUR ---
SPOKE WITH DR GOLDMAN REGARDING PTS INR=1.5, ORDERS HEMATOLOGY CONSULT HE FEELS PT HAS BEEN GIVEN ENOUGH VIT K.
[2021-06-11 05:46] LABS: ALBUMIN 2.7 gm/dL (3.4-4.8); CALCIUM 8.1 mg/dL (8.4-10.2); CREATININE, serum 3.28 mg/dL (0.57-1.11); PHOSPHOROUS 4.9 mg/dL (2.3-4.7); POTASSIUM 4.2 mmol/L (3.5-4.5)
--- NOTE | 2021-06-11 05:50 | NUR ---
SPOKE WITH HUNTER LOREDO REGARDING PTS INR. HE WILL NOTIFY DR MERINO FOR FURTHER INSTRUCTIONS.
--- NOTE | 2021-06-11 06:03 | NUR ---
HUNTER LOREDO RELAYS DR MERINO IS OKAY DOING SURGERY WITH INR=1.5.
[2021-06-11 06:04] LABS: LYMPHOCYTE 6 % (20.0-51.0); NEUTROPHILS 90 % (42.0-75.2)
[2021-06-11 06:05] LABS: PLATELET ESTIMATE NORMAL (NORMAL)
--- NOTE | 2021-06-11 06:05 | NUR ---
DR JONES NAQVI NOT HAVING HEMATOLOGY CONSULT AND PROCEEDING WITH SURGERY THIS AM.
--- NOTE | 2021-06-11 07:13 | NUR ---
PT READY FOR SURGERY.
--- NOTE | 2021-06-11 07:23 | NUR ---
PATIENT LEFT FOR SURGERY AT 07:24 IN BED.
--- NOTE | 2021-06-11 08:53 | NUR ---
PATIENT ALERT AND ORIENTED X3. WENT DOWN FOR SURGERY EARLY THIS MORNING. MEPILEX TO COCCYX DUE TO ABSCESS THAT GETS DRAINED OFTEN.
--- NOTE | 2021-06-11 11:13 | NUR ---
PATIENT ARRIVED TO UNIT AT 1110. VITALS WNL.
[2021-06-12] VITALS (7 sets, daily range): BP systolic 103–127; BP diastolic 38–60; PULSE 69–80; TEMP 97.4–98.4
--- NOTE | 2021-06-12 05:19 | NUR ---
ASSUMED CARE OF PATIENT AFTER RECEIVING BEDSIDE REPORT. ASSESSMENT COMPLETED, VSS. NO QUESTIONS OR CONCERNS AT THIS TIME. DR. GOLDMAN AT BEDSIDE, ORDERS RECEIVED FOR CHANGES TO ANTICOAGULATION. CHANGES APPROVED BY DR. MERINO. PATIENT VOICED CONERNS ABOUT TAKING WARFARIN, STATED SHE WILL DISCUSS WITH DR GOLDMAN. NO ACUTE EVENTS OVERNIGHT. BEDSIDE REPORT TO BE GIVEN TO ONCOMING NURSE
[2021-06-12 06:57] LABS: INR 1.3 (0.8-3.0); PROTHROMBIN TIME 15.4 SECONDS (9.7-12.8)
[2021-06-12 09:06] LABS: HEMATOCRIT 38.6 % (37.0-47.0); HEMOGLOBIN 12.3 g/dl (12.5-16.0); MEAN CELL VOLUME 94 fl (80.0-100.0); MEAN CORPUSCULAR HEMOGLOBIN 30 pg (27-31); MEAN CORPUSCULAR HGB CONC 32 g/dl (33.0-37.0); PLATELET COUNT 205 K/mm3 (130-400); RED BLOOD COUNT 4.11 M/mm3 (4.10-5.30); REDCELL DISTRIBUTION WIDTH-CV 15.2 % (11.5-14.5)
--- NOTE | 2021-06-12 09:15 | NUR ---
PATIENT ALERT AND ORIENTED X4. PAIN HAS NO PAIN. ATE WELL FOR BREAKFAST. NO NEW CONCERNS. PATIENT TOOK MORNING PILLS WELL. WORKING WITH THERAPY RIGHT NOW.
[2021-06-12 09:24] LABS: ALBUMIN 2.5 gm/dL (3.4-4.8); CALCIUM 7.6 mg/dL (8.4-10.2); CREATININE, serum 3.86 mg/dL (0.57-1.11); PHOSPHOROUS 5.9 mg/dL (2.3-4.7); POTASSIUM 4.3 mmol/L (3.5-4.5)
[2021-06-12 10:05] LABS: BAND 2 % (0-10); LYMPHOCYTE 4 % (20.0-51.0); NEUTROPHILS 93 % (42.0-75.2)
[2021-06-12 10:06] LABS: ANISOCYTOSIS 1+; HYPOCHROMIA 2+; PLATELET ESTIMATE NORMAL (NORMAL)
--- NOTE | 2021-06-12 19:50 | NUR ---
PT REPORTS PAINFUL LEFT AC INT SITE, DC'D AND STARTED #22 TO LT WRIST ON FIRST ATTEMPT. ORDER FOR IVF AT 50CC/HR, PT REPORTS POOR ORAL INTAKE, CONTINUES TO HAVE EMESIS AFTER EATING. RESTARTED IVF. PT DENIES PAIN. HAS BULKY DRSG TO LEFT HIP, ICE PACK PLACED. MEPILEX INTACT TO COCCYX. QUIGLEY WITH YELLOW URINE, TO BSD. HAS RT VASCATH AND AV FISTULA TO NIKI, GOOD BRUIT AND THRILL.
[2021-06-13 03:35] VITALS: BP 109/52; PULSE 70; TEMP 97.5
--- NOTE | 2021-06-13 06:30 | NUR ---
PT HAS HAD NO STOOLS THIS SHIFT. TAKES SCHEDULED AM MED, REPORTS ONE SMALL SPIT UP THIS SHIFT. IVF CONTINUE AT 50CC/HR.
[2021-06-13 07:07] LABS: BASO % 0.2 % (0.0-2.0); EOS # 0.1 K/mm3 (0.0-0.7); EOS % 0.9 % (0.0-4.0); GRAN # 4.8 K/mm3 (1.4-6.5); GRAN % 85.4 % (42.2-75.2); HEMATOCRIT 38.9 % (37.0-47.0); HEMOGLOBIN 12.4 g/dl (12.5-16.0); LYMPH # 0.3 K/mm3 (1.2-3.4); LYMPH % 5.9 % (20.0-51.0); MEAN CELL VOLUME 95 fl (80.0-100.0); MEAN CORPUSCULAR HEMOGLOBIN 30 pg (27-31); MEAN CORPUSCULAR HGB CONC 32 g/dl (33.0-37.0); MEAN PLATELET VOLUME 10.5 fl (7.4-10.4); MONO # 0.4 K/mm3 (0.1-0.6); MONO % 7.1 % (1.7-9.3); PLATELET COUNT 198 K/mm3 (130-400); RED BLOOD COUNT 4.09 M/mm3 (4.10-5.30); REDCELL DISTRIBUTION WIDTH-CV 15.3 % (11.5-14.5)
[2021-06-13 07:16] LABS: INR 1.5 (0.8-3.0); PROTHROMBIN TIME 16.8 SECONDS (9.7-12.8)
[2021-06-13 07:23] LABS: ALBUMIN 2.5 gm/dL (3.4-4.8); CALCIUM 7.8 mg/dL (8.4-10.2); CREATININE, serum 4.13 mg/dL (0.57-1.11); PHOSPHOROUS 6.2 mg/dL (2.3-4.7); POTASSIUM 4.4 mmol/L (3.5-4.5)
--- NOTE | 2021-06-13 07:30 | NUR ---
Stopped IVF at this time as pt is dialysis pt, taking PO okay
[2021-06-13 08:00] VITALS: BP 111/49; PULSE 72; TEMP 97.7
--- NOTE | 2021-06-13 09:33 | NUR ---
Follow-up visit; Patient stated she is doing ok then received a phone call. Spanish Language Lecturer will look in on her another time.
--- NOTE | 2021-06-13 09:45 | NUR ---
Pt doing okay today. She reports not having any pain at rest, but does have increase in pain with movement. Dressing removed from left hip, incision was well approximated with no drainage or redness noted. Aquacell applied. Pt aware that she will have dialysis today around 1200. Brady hose on bilaterally. Pt does have several dry cuts to her fingers on her right hand. She stated that they started about 3 months ago and her skin just split. Cuts do not appear to be healing, but are dry. Pt also has mepilex on her coccyx from abscess that was lanced by Dr Rosen. pt does have family in the room with her at this time. No other needs verbalized, will continue to monitor
--- NOTE | 2021-06-13 10:54 | NUR ---
Pt resting with eyes closed, even non labored breathing
[2021-06-13 12:00] VITALS: BP 123/54; PULSE 72; TEMP 96.7
--- NOTE | 2021-06-13 13:00 | NUR ---
Pt is dialysis at this time
--- NOTE | 2021-06-13 13:11 | NUR ---
Clinical updates faxed to Nikole at [facility]. Notified her that the patient is not ready for discharge yet.
[2021-06-13 14:24] LABS: CLOSTRIDIUM DIFF A/B NEG; CLOSTRIDIUM DIFF A/B INTERP No C.diff present
--- NOTE | 2021-06-13 16:13 | NUR ---
Notified by Nikole at [facility] that they cannot accomodate the patients dialysis chair time of M&F 0530 am. Patients RN and CHRIS Frederick updated.
--- NOTE | 2021-06-13 16:23 | NUR ---
Patient tolerated her HD tx with 2,090mL of fluid removed today. Attempted increased fluid removal & patient became hypotensive. Next planned HD tx on Sunday06/15/21 @ 0830.
[2021-06-13 16:28] VITALS: BP 105/47; PULSE 69; TEMP 97.8
--- NOTE | 2021-06-13 17:53 | NUR ---
Pt back from dialysis around 4:30. She is alert although she was unaware that she had a bowel movement in the bed. Stool was loose and large in amount. Pt having some pain, but states that she does not want any narcotics. Discussed discharge with her tomorrow as she had a family member with her in the room that was asking. Pt initially reported that she was going to [facility]. Informed her that they did not accept her because of transportation to dialysis. Pt stated that the therapist told her she was going there, so that is where she is going. Explained that therapy was not aware of the transportation issue. Informed that they will have to look at other facilities that will be able to transport to dialysis. Pt was adament that she was not going to anywhere is prison. Pt also did not want her osorio catheter removed because then she will have to get up more. Discussed with Courtney earlier today, ordered to keep catheter in place. Shortly after leaving the room after cleaning her up and changing the mepilex on her coccyx, pt had another incontinent stool. pt again cleaned and dressing changed.
[2021-06-13 20:05] VITALS: BP 118/49; PULSE 72; TEMP 98.7
--- NOTE | 2021-06-13 21:08 | NUR ---
ASSESSMENT COMPLETE. PT LYING IN BED. A&O. PT. WAS INCONTIENT OF STOOL. MEPILEX DRESSING TO COCCYX CHANGED. SKIN UNDERNEATH REVEALED A DEEP TISSUE INJURY. PT. HAS A SKIN TEAR UNDER BOTH BREAST. INTER DRESSING IN PLACE. PT. WAS REPOSTIONED IN BED WITH PILLOWS UNDER RIGHT SIDE AND A PILLOW UNDER LEFT LEG. DRESSING TO LEFT HIP CD&I. DENIES PAIN. CALL LIGHT IN REACH. NO FURTHER NEEDS AT THIS TIME.
--- NOTE | 2021-06-13 22:00 | NUR ---
PT INC OF STOOL, SHERLYN CARES PROVIDED, NEW MEPILEX APPLIED TO COCCYX D/T SOILING.
[2021-06-14] VITALS (7 sets, daily range): BP systolic 113–125; BP diastolic 50–56; PULSE 68–80; TEMP 97.5–98.7
[2021-06-14 06:53] LABS: BASO % 0.2 % (0.0-2.0); EOS % 0.9 % (0.0-4.0); GRAN # 3.9 K/mm3 (1.4-6.5); HEMOGLOBIN 11.8 g/dl (12.5-16.0); LYMPH # 0.3 K/mm3 (1.2-3.4); LYMPH % 5.9 % (20.0-51.0); MEAN CELL VOLUME 91 fl (80.0-100.0); MEAN CORPUSCULAR HEMOGLOBIN 30 pg (27-31); MEAN CORPUSCULAR HGB CONC 33 g/dl (33.0-37.0); MEAN PLATELET VOLUME 10.7 fl (7.4-10.4); MONO # 0.3 K/mm3 (0.1-0.6); MONO % 7.3 % (1.7-9.3); PLATELET COUNT 179 K/mm3 (130-400); RED BLOOD COUNT 3.94 M/mm3 (4.10-5.30); REDCELL DISTRIBUTION WIDTH-CV 14.9 % (11.5-14.5)
[2021-06-14 06:55] LABS: INR 1.4 (0.8-3.0); PROTHROMBIN TIME 15.8 SECONDS (9.7-12.8)
[2021-06-14 07:01] LABS: HEMATOCRIT 35.8 % (37.0-47.0)
[2021-06-14 07:09] LABS: ALBUMIN 2.2 gm/dL (3.4-4.8); CALCIUM 7.6 mg/dL (8.4-10.2); CREATININE, serum 2.62 mg/dL (0.57-1.11); PHOSPHOROUS 3.4 mg/dL (2.3-4.7); POTASSIUM 3.7 mmol/L (3.5-4.5)
--- NOTE | 2021-06-14 08:40 | NUR ---
*(LATE ENTRY)* Spoke with Nikole at [facility] [place] who states that anytime after 6AM and ending before 4pm would work for their transportation team to get this patient to dialysis. Informed Yoly-CHRIS of this who will speak to her office and see if something can't be worked out.
--- NOTE | 2021-06-14 08:42 | NUR ---
Message left for Rosy this morning to see if her office was able to find a chair time that would work for [facility].
--- NOTE | 2021-06-14 09:53 | NUR ---
PT IS TRANSFERRED INTO THE RECLINER CHAIR WITH ASSISTANCE OF THERAPY. PT HAS A LOOSE INCONTINENT STOOL. INCONTINENCE CARE COMPLETED ET SACRAL MEPILEX CHANGED. PT HAS WHAT APPEARS TO BE 3 SEPARATE WOUNDS ON COCCYX, WOUND BEDS ARE PINK. PT STATES THAT SHE HAD AN ABCESS THERE THAT WAS LANCED BY DR. LOVE BEFORE PT WAS ADMITTED TO THE HOSPITAL.
--- NOTE | 2021-06-14 10:18 | NUR ---
Follow-up visit; Today patient and Biodiesel Technology Manager had a good visit about her letting go and letting God take over her self-imposed responsibility for her grand son and everyone else. Let her not senior business architect God's way and concentrate on letting God work in her life. Biodiesel Technology Manager will continue to look in on Wilner.
--- NOTE | 2021-06-14 11:01 | NUR ---
Spoke with Rosy. Their office is able to fit this patient in M,W,F 6-8:30 in [place] to accommodate [facility]. Attempt made to contact Nikole multiple times through the morning with no success. Contact made with [facility] in [place]. They do not currently have have a bed available. Contact made with [facility]. They do currently have a bed and patients clinical referral faxed. Contact made with Nikole at [facility]. She confirms that the M,W,F 6-830 dialysis time will work for them. Nikole states that they currently have no internet services and without that they cannot enter the patient into their system for an admission. Nikole states that at this time IT is there working to resolve the problem and the goal is to get the patient over there today. Patients PA and RN notified. Patient updated. Patient presented with the MCR.IM form. Education provided and patient verbalizes agreement with discharge plan. Signed original placed in chart and copy provided to the patient.
[2021-06-14 12:00] LABS: LUPUS ANTICOAGULANT INR 1.5 (0.7-1.3); LUPUS ANTICOAGULANT PT 18.6 Seconds (())
--- NOTE | 2021-06-14 13:20 | NUR ---
PT SITTING UP IN THE CHAIR, EATING LUNCH. PT HAD AN EPISODE OF EMESIS AFTER EATING MEATLOAF. PT DENIES NAUSEA, STATES THAT HER VOMITTING COMES ON SUDDENLY, HAS BEEN HAPPENING DAILY. PT STATES THAT SHE THINKS MEAT EXACERBATES IT. PT DENIES NEEDS, CALL LIGHT WITHIN REACH. CHAIR ALARM IS ON.
--- NOTE | 2021-06-14 18:00 | NUR ---
PT RESTING IN BED @ THIS TIME, VISITING WITH FAMILY. PT HAS DENIED PAIN THROUGHOUT DAY. HAS HAD NUMEROUS LOOSE INCONTINENT STOOLS, SACRAL MEPILEX HAVE BEEN CHANGED ET PERICARE COMPLETED WITH BARRIER CREAM APPLIED TO PT'S BUTTOCKS, INNER THIGHS ET LABIA. INTERDRY CLOTHS HAVE BEEN CHANGED UNDER PT'S BILATERAL BREASTS.
--- NOTE | 2021-06-14 20:59 | NUR ---
ASSESSMENT COMPLETE. PT. ASLEEP IN BED BUT AWOKE UPON ENTERING THE ROOM. A&O. LEG WAS REPOSTIONED ON PILLOW. QUIGLEY SECURED AND DEPENDENT TO DRAINAGE. INT IN LEFT HAND. DRESSING ON LEFT HIP CD&I. CALL LIGHT IN REACH. NO FURHTER NEEDS AT THIS TIME.
[2021-06-15 03:52] VITALS: BP 131/61; PULSE 69; TEMP 97.5
[2021-06-15 05:59] LABS: HEMATOCRIT 38.1 % (37.0-47.0); HEMOGLOBIN 12.2 g/dl (12.5-16.0); MEAN CELL VOLUME 93 fl (80.0-100.0); MEAN CORPUSCULAR HEMOGLOBIN 30 pg (27-31); MEAN CORPUSCULAR HGB CONC 32 g/dl (33.0-37.0); MEAN PLATELET VOLUME 10.6 fl (7.4-10.4); PLATELET COUNT 175 K/mm3 (130-400); RED BLOOD COUNT 4.08 M/mm3 (4.10-5.30)
[2021-06-15 06:11] LABS: INR 1.4 (0.8-3.0); PROTHROMBIN TIME 15.9 SECONDS (9.7-12.8)
[2021-06-15 06:14] LABS: ALBUMIN 2.3 gm/dL (3.4-4.8); CALCIUM 7.7 mg/dL (8.4-10.2); CREATININE, serum 2.71 mg/dL (0.57-1.11); PHOSPHOROUS 2.9 mg/dL (2.3-4.7)
[2021-06-15 07:05] LABS: LYMPHOCYTE 12 % (20.0-51.0); NEUTROPHILS 83 % (42.0-75.2)
[2021-06-15 07:30] VITALS: BP 128/53; PULSE 70; TEMP 97.7
[2021-06-15 08:00] LABS: LUPUS ANTICOAG DRVVT CONFIRM 2.11 ratio (()); LUPUS DRVVT RATIO 1.01 ratio (())
--- NOTE | 2021-06-15 10:24 | NUR ---
Follow-up; Wilner is in Dialysis, smiling and pleasant. joked with her a bit and will return when she is in her room.
--- NOTE | 2021-06-15 10:49 | NUR ---
PT IN DIALYSIS @ THIS TIME. PT HAS HAD 2 LOOSE INCONTINENT STOOLS THIS MORNING. STOOLS ARE SOFT, NOT LIQUID, BROWN. SHERLYN CARE ET CATH CARE COMPLETED EACH TIME. MEPILEX ON WOUND/ABCESS HAS ALSO BEEN CHANGED EACH TIME, SMALL AMOUNT OF SEROSANGUINEOUS DRAINAGE NOTED. QUIGLEY CATHETER DRAINING CLEAR ROSALEE URINE.
[2021-06-15 12:30] VITALS: BP 116/52; PULSE 79; TEMP 98.1
--- NOTE | 2021-06-15 12:53 | NUR ---
Spoke with Nikole at [facility] who states that they are able to take this patient today. Informed Nikole that the patient was getting a dialysis tx at this time and it is slated for 3 hrs. Nikole states that transportation can pick this patient up at 1330. Notified PA and patients RN. CHRIS decides that she would like to keep the patient overnight to run another c-diff test on the patient. She also states that the patient is not responding to her coumadin and is needing to bridge her with lovenox. Patient will repeat labs tomorrow to see if she responds to this regimen. Notified Nikole at [facility] of change.
--- NOTE | 2021-06-15 13:33 | NUR ---
PATIENT TOLERATED HD TX WITH 3L OF FLUID REMOVED. NEXT PLANNED HD TX ON Sunday06/17/21 @ [facility] IN [place].
[2021-06-15 15:22] VITALS: BP 136/68; PULSE 71; TEMP 97.9
--- NOTE | 2021-06-15 19:12 | NUR ---
PT RESTING IN BED AFTER FINISHING EATING DINNER. PT ATE 100% OF MEAL ET A SUPPLEMENT. PT HAS BEEN IN BED SINCE RETURNING FROM DIALYSIS THIS AFTERNOON. HAS BEEN REPOSITIONED EVERY 2 HRS OR MORE FREQUENTLY. PT IS INCONTINENT OF STOOLS EACH TIME. STOOL IS LOOSE BUT NOT LIQUID. IMMODIUM HAS BEEN ADMINISTERED. SACRAL MEPILEX IS CHANGED ET SHERLYN CARE COMPLETED. NEPHROLOGY HAS BEEN MADE AWARE OF CONDITION OF PT'S WOUND ON HER COCCYX, RECOMMENDS TO CONTINUE FREQUENTLY REPOSITIONING PT. BARRIER CREAM APPLIED TO RED EXCORIATED INNER THIGHS, LABIA ET BILATERAL BUTTOCKS. QUIGLEY CATHETER WAS REMOVED THIS AFTERNOON, PT HAS NOT YET URINATED BUT STATES THAT SHE USUALLY DOES NOT URINATE MUCH AFTER HAVING DIALYSIS. INTERDRY CLOTHS CHANGED UNDER BILATERAL BREASTS. SKIN UNDER BREASTS REMAINS RED ET EXCORIATED FROM MOISTURE.
[2021-06-15 20:16] VITALS: BP 126/48; BP 139/76; PULSE 72; PULSE 77; TEMP 97.6; TEMP 97.9
--- NOTE | 2021-06-15 22:02 | NUR ---
ASSESSMENT COMPLETE. PT. LYING IN BED. A&O. PT. DOES COMPLAIN OF FEELING DISORIENTED AND HOT. BLANKETS REMOVED AND ROOM TEMPATURE ALL THE WAY DOWN. PERIWICK IN PLACE. PT. IS GOING TO TRY TO SLEEP. CALL LIGHT IN REACH. NO FURTHER NEEDS AT THIS TIME.
[2021-06-15 23:43] VITALS: BP 128/68; PULSE 82; TEMP 97.4
[2021-06-16 04:14] VITALS: BP 121/47; PULSE 70; TEMP 97.8
[2021-06-16 05:55] LABS: HEMOGLOBIN 11.2 g/dl (12.5-16.0); MEAN CELL VOLUME 92 fl (80.0-100.0); MEAN CORPUSCULAR HEMOGLOBIN 30 pg (27-31); MEAN CORPUSCULAR HGB CONC 32 g/dl (33.0-37.0); MEAN PLATELET VOLUME 10.8 fl (7.4-10.4); PLATELET COUNT 177 K/mm3 (130-400); RED BLOOD COUNT 3.79 M/mm3 (4.10-5.30); REDCELL DISTRIBUTION WIDTH-CV 15.3 % (11.5-14.5)
[2021-06-16 06:08] LABS: CALCIUM 7.6 mg/dL (8.4-10.2); CREATININE, serum 2.1 mg/dL (0.57-1.11); PHOSPHOROUS 2.4 mg/dL (2.3-4.7); POTASSIUM 3.7 mmol/L (3.5-4.5)
[2021-06-16 06:11] LABS: INR 1.3 (0.8-3.0); PROTHROMBIN TIME 15.2 SECONDS (9.7-12.8)
[2021-06-16 06:45] LABS: BAND 2 % (0-10); LYMPHOCYTE 7 % (20.0-51.0); MYELOCYTE 1 % (0-0); NEUTROPHILS 84 % (42.0-75.2)
[2021-06-16 06:46] LABS: ANISOCYTOSIS 1+; HYPOCHROMIA 1+; PLATELET ESTIMATE NORMAL (NORMAL)
[2021-06-16 08:01] VITALS: BP 130/57; PULSE 73; TEMP 97.9
--- NOTE | 2021-06-16 10:45 | NUR ---
SCANNER IN ROOM NOT WORKING WILL NOT READ PT WRIST BAND.
[2021-06-16] MEDS ORDERED: CORDARONE200 MG/TAB PO (11:17)
[2021-06-16] MEDS ORDERED: IMODIUM 2MG CAPS2 MG PO (11:19)
[2021-06-16] MEDS ORDERED: VTAMINC250TA PO (11:20)
--- NOTE | 2021-06-16 11:54 | NUR ---
SURGICAL WOUND TO SACRUM REDRESSED WITH MEPILEX. WILL FOLLOW UP WITH WOUND CARE OUTPATIE.
[2021-06-16 12:00] VITALS: BP 120/48; PULSE 73; TEMP 97.7
--- NOTE | 2021-06-16 12:52 | NUR ---
bulk intake worker notified by PA that patient can discharge today. Notified Nikole at [facility] that the patient is good to go. Clinical updates and discharge orders faxed to [facility]. Transportation arranged for 1400 to pick the patient up. Patients Rn updated. Phone call made to patients sister Samara to notify. Samy, who is the patients long time partner of 40 years also notified. Discharge plan: [facility]
--- NOTE | 2021-06-16 14:17 | NUR ---
Follow-up visit; Patient preparing to be discharged to Rehabilitation. Patient stated she thinks she "May make it now." She appears to be more optimistic because she is feeling better. She thanked Seal Mixing Operator for being there for her and offering Blessings and prayers.
--- NOTE | 2021-06-16 15:14 | NUR ---
[id number] CALLED TO [facility]. PT LEFT WITH TRANSPORTATION FROM [place].
[2021-06-16 17:55] LABS: BETA 2 IGG-REFLEX SEE PCI FOR RESULTS; BETA 2 IGM-REFLEX SEE PCI FOR RESULTS
== END 2021-06-16 15:15 | DRG 521 ==
LOC: COL.ER 19:38 → SURG 21:15
PROVIDERS: Emergency Medicine; Orthopaedic Surgery; Registered Nurse; ADMIT Internal Medicine Nephrology
PROC: 5A1D70Z Performance of Urinary Filtration, Intermittent, Less than 6 Hours Per Day (ICD-10-PCS; 2021-06-08)
PROC: 0SRS0J9 Replacement of Left Hip Joint, Femoral Surface with Synthetic Substitute, Cemented, Open Approach (ICD-10-PCS; principal; 2021-06-11 08:00)
DX: S72.002A Fracture of unspecified part of neck of left femur, initial encounter for closed fracture (principal); N18.6 End stage renal disease; I12.0 Hypertensive chronic kidney disease with stage 5 chronic kidney disease or end stage renal disease; E11.22 Type 2 diabetes mellitus with diabetic chronic kidney disease; E78.5 Hyperlipidemia, unspecified; E03.9 Hypothyroidism, unspecified; I48.0 Paroxysmal atrial fibrillation; G47.30 Sleep apnea, unspecified; I73.00 Raynaud's syndrome without gangrene; I27.20 Pulmonary hypertension, unspecified; N30.20 Other chronic cystitis without hematuria; W01.0XXA Fall on same level from slipping, tripping and stumbling without subsequent striking against object, initial encounter; Y93.89 Activity, other specified; Y92.003 Bedroom of unspecified non-institutional (private) residence as the place of occurrence of the external cause; Z96.651 Presence of right artificial knee joint; Z99.2 Dependence on renal dialysis; Z85.038 Personal history of other malignant neoplasm of large intestine; Z95.0 Presence of cardiac pacemaker; Z79.01 Long term (current) use of anticoagulants; Z87.891 Personal history of nicotine dependence; Z79.4 Long term (current) use of insulin; Z20.822 Contact with and (suspected) exposure to COVID-19
CPT/HCPCS: A9284; C1776; J0330; J0690; J0696; J1100; J1170; J1644; J1650; J1815; J2250; J2405; J2704; J2795; J3010; J3430; J7030

== ENCOUNTER 2021-06-22 08:48 | Inpatient (IN) | payer MEDICARE, BC ==
[~2021-06-22] VITALS: Wt 102.4 kg
[~2021-06-22 08:48] MED LIST changes: +IMODIUM 2MG CAPS2 MG PO; +VTAMINC250TA PO; +ZOFRAN ODT4 MG PO
[2021-06-22 10:19] LABS: HEMATOCRIT 45.1 % (37.0-47.0); HEMOGLOBIN 14.4 g/dl (12.5-16.0); MEAN CELL VOLUME 94 fl (80.0-100.0); MEAN CORPUSCULAR HEMOGLOBIN 30 pg (27-31); MEAN CORPUSCULAR HGB CONC 32 g/dl (33.0-37.0); MEAN PLATELET VOLUME 10.6 fl (7.4-10.4); PLATELET COUNT 235 K/mm3 (130-400); RED BLOOD COUNT 4.82 M/mm3 (4.10-5.30); REDCELL DISTRIBUTION WIDTH-CV 15.5 % (11.5-14.5)
[2021-06-22 10:36] LABS: ALBUMIN 2.4 gm/dL (3.4-4.8); CALCIUM 8.6 mg/dL (8.4-10.2); CREATININE, serum 1.92 mg/dL (0.57-1.11); POTASSIUM 3.6 mmol/L (3.5-4.5); TOTAL PROTEIN 6.1 gm/dL (6.2-8.1)
[2021-06-22 10:50] LABS: BAND 2 % (0-10); LYMPHOCYTE 6 % (20.0-51.0); NEUTROPHILS 87 % (42.0-75.2); PLATELET ESTIMATE NORMAL (NORMAL)
[2021-06-22 12:23] VITALS: BP 120/49; PULSE 83; TEMP 97.5
[2021-06-22 16:00] LABS: INR 1.3 (0.8-3.0); PROTHROMBIN TIME 14.4 SECONDS (9.7-12.8)
[2021-06-22 16:09] VITALS: BP 120/40; PULSE 72; TEMP 97.6
--- NOTE | 2021-06-22 18:00 | NUR ---
PATIENT ADMITTED TO ROOM 316 FROM ED FOR SMALL BOWEL OBSTRUCTION. SHIFT ADMISSION ASSESSMENT PERFORMED. SKIN ISSUES NOTED IN ASSESSMENT. PHARMACY, MEDICATION, AND ALLERGIES REVIEWED. PICC LINE PLACED BY BAM SMITH PER DR GOLDMAN. NG PLACED, AND HOOKED TO LOW INTERMITTENT SUCTIONING. PLACMENT CONFIRMED BY XRAY. GASTRIC OUTPUT IS BROWN AND GRAINY IN NATURE. PATIENT REPOSITIONED OFF OF SACRUM. HEEL PROTECTORS IN PLACE. PATIENT IS CURRENTLY RESTING IN BED. TELE ON PER ORDERS. DENIES ANY FURTHER PAIN, DISCOMFORT, SOA, OR FURTHER NEEDS AT THIS TIME. CALL LIGHT IN REACH. FALL PERCUATIONS IN PLACE. VSS. PATIENT A&O.
[2021-06-22 19:45] VITALS: BP 131/57; PULSE 73; TEMP 98.1
[2021-06-22] MEDS ORDERED: ULORIC40 MG PO ×2 (21:04→21:05)
[2021-06-22] MEDS ORDERED: VITAMIN B12 (21:07)
--- NOTE | 2021-06-22 23:45 | NUR ---
CLEANSED COCCYX APPLIED NEW DRESSING REPOSITIONED PATIENT WELL NOTED REDNESS TO R HIP. OFFLOADING HEELS WITH PILLOW. NG TUBE IN PLACE APPLIED TO LOW INTERMITTED SUCTION. BROWN DRAINAGE NOTED WITH FOULD SMELL OF FECES. PATIENT REMAINS NPO AT THIS TIME. CALL LIGHT WITHIN REACH WILL CONTINUE TO MOINTOR NO PAIN NOTED AT THIS TIME. TURNING AND REPOSITIONING ENCOURAGED THROUGHOUT SHIFT. CONTINUES WITH [id number] WELL.
[2021-06-23] VITALS (7 sets, daily range): BP systolic 123–136; BP diastolic 49–66; PULSE 68–79; TEMP 97.6–98.1
--- NOTE | 2021-06-23 02:57 | NUR ---
PATIENT SLEEPING MOST OF THE NIGHT TURNING AND REPOSITIONING IN BED. PATIENT CONTINUES ON LOW INTERMITTEN SUCTIONING, HOB ELEVEATED TO PREVENT ASPIRATION. NO N/V NOTED. APPLIED MEDICATION POWDER TO GROIN AREA CLEANSED BEFORE APPLYING. WILL CONTINUE TO MONITOR.
[2021-06-23 06:22] LABS: BASO % 0.3 % (0.0-2.0); EOS % 0.1 % (0.0-4.0); GRAN # 6.4 K/mm3 (1.4-6.5); HEMATOCRIT 38.5 % (37.0-47.0); LYMPH # 0.3 K/mm3 (1.2-3.4); LYMPH % 4.1 % (20.0-51.0); MEAN CELL VOLUME 96 fl (80.0-100.0); MEAN CORPUSCULAR HEMOGLOBIN 30 pg (27-31); MEAN CORPUSCULAR HGB CONC 31 g/dl (33.0-37.0); MEAN PLATELET VOLUME 10.6 fl (7.4-10.4); MONO # 0.5 K/mm3 (0.1-0.6); MONO % 6.4 % (1.7-9.3); PLATELET COUNT 267 K/mm3 (130-400); REDCELL DISTRIBUTION WIDTH-CV 15.7 % (11.5-14.5)
[2021-06-23 06:52] LABS: ALBUMIN 2.2 gm/dL (3.4-4.8); CALCIUM 8.1 mg/dL (8.4-10.2); CREATININE, serum 2.63 mg/dL (0.57-1.11); PHOSPHOROUS 5.9 mg/dL (2.3-4.7); POTASSIUM 4.1 mmol/L (3.5-4.5)
--- NOTE | 2021-06-23 10:13 | NUR ---
Initial visit; Patient having a difficult time with being ill and unable to help others, which she has done throughout her life. Factory Machine Computer Operator is a friend of the patient and so combed her hair for her and prayed. Patient said it helped her and thanked Factory Machine Computer Operator who dismissed herself when patient received a phone call. Factory Machine Computer Operator will continue to follow up.
--- NOTE | 2021-06-23 15:27 | NUR ---
Received report from costume seamstress. Patient alert and oriented x4. Patient here for SBO and N/V. VSS. Assessment performed. AM meds provided. Patient denies any pain at this time. Dressing changed on coccyx with silver alginate sheet applied to coccyx. Bilat heels with heel cup and boots. Patient turned in bed. Bed overlay ordered, will arrive tomorrow. NG to LIS with 100 output. Patient in bed with call light near.
--- NOTE | 2021-06-23 15:37 | NUR ---
MERT met with the patient to discuss discharge plan. The patient recently discharged from the hospital and went to [facility] for a skilled stay. She has been there since. She states that things were going well there, but then she stopped have bowel movements and then began to throw up. She was then admitted to the hospital. The patient states that she plans on returning back to [facility] to resume her skilled stay upon discharge. The patient's PCP is Dr. Daniel Lim. The patient does not have a DPOA-HC in EMR, but she states that she does have one completed and that it designates her partner, Samy (ph#[phone]). MERT contacted Samy to review the above. Samy confirmed the plan. He states that he brought a copy of the DPOA-HC to the hospital the last time the patient was here. He states that he will get a copy and bring it up to the hospital tomorrow. *Discharge plan: [facility]*
--- NOTE | 2021-06-23 23:14 | NUR ---
CONTINUES WITH NG TUBE ON LOW INTERMITTEN SUCTION BROWN DRAINAGE NOTED. PATIENT DID STATE SHE WAS PASSING GAS AND STATED SHE FEELS BETTER. PATIENT MORE ACTIVE THIS EVENING ASSISTING WITH ADL'S. PATIENT TO HAVE KUB IN AM TO EVALUATE PROGRESSION. PATIENT WAS CONSULTED BY DIETARY REMAINS NPO AT THIS TIME. NO N/V NOTED. PACED ON TELE, PATIENT TO HAVE DIALYSIS IN AM AROUND 0830. DRESSING INTACT TO COCCYX AND BILAT HEELS. WILL CONTINUE TO MONITOR FOR ANY CHANGES. TURNING AND REPOSITIONING ENCOURAGED THROUGHOUT SHIFT.
[2021-06-24 00:31] VITALS: BP 132/49; PULSE 77; TEMP 97.7
[2021-06-24 04:44] VITALS: BP 144/65; PULSE 73; TEMP 97.5
--- NOTE | 2021-06-24 04:53 | NUR ---
TURNING AND REPOSITIONING PATIENT THROUGHOUT SHIFT TOLERATING WELL. SLEPT THROUGHOUT THE NIGHT NO C/O N/V PATIENT REMAINS NPO. WILL CONTINUE TO MONITOR.
[2021-06-24 06:18] LABS: BASO % 0.1 % (0.0-2.0); EOS % 0.1 % (0.0-4.0); GRAN # 7.8 K/mm3 (1.4-6.5); GRAN % 89.7 % (42.2-75.2); HEMOGLOBIN 11.9 g/dl (12.5-16.0); LYMPH # 0.2 K/mm3 (1.2-3.4); LYMPH % 2.8 % (20.0-51.0); MEAN CELL VOLUME 99 fl (80.0-100.0); MEAN CORPUSCULAR HEMOGLOBIN 29 pg (27-31); MEAN CORPUSCULAR HGB CONC 30 g/dl (33.0-37.0); MEAN PLATELET VOLUME 10.2 fl (7.4-10.4); MONO # 0.6 K/mm3 (0.1-0.6); MONO % 6.5 % (1.7-9.3); PLATELET COUNT 282 K/mm3 (130-400); RED BLOOD COUNT 4.05 M/mm3 (4.10-5.30); REDCELL DISTRIBUTION WIDTH-CV 15.9 % (11.5-14.5)
[2021-06-24 06:31] LABS: ALBUMIN 2.2 gm/dL (3.4-4.8); CALCIUM 8.2 mg/dL (8.4-10.2); CREATININE, serum 3.06 mg/dL (0.57-1.11); PHOSPHOROUS 7.2 mg/dL (2.3-4.7)
[2021-06-24 08:04] VITALS: BP 125/49; PULSE 70; TEMP 97.6
--- NOTE | 2021-06-24 08:04 | NUR ---
CRITICAL CO2 CALLED TO CELESTINA OSBORN, WHO READ BACK THE RESULTS.
--- NOTE | 2021-06-24 09:33 | NUR ---
Follow-up visit; Patient thanked Chemical Analytical Sampler for getting her some ice, listening, combing her hair and offering prayer and continued blessings. Chemical Analytical Sampler will continue to offer spiritual care to WilnerJamey
--- NOTE | 2021-06-24 12:52 | NUR ---
MERT faxed updates to Nikole at [facility].
[2021-06-24 16:01] VITALS: BP 121/39; PULSE 71; TEMP 97.2
--- NOTE | 2021-06-24 18:00 | NUR ---
Shift assessment completed. Scheduled medications given. Per Saleem, NG tube clamped and diet progressed to clear liquids. Patient tolerating well. Denies any N/V. Abdomen soft. Patient passing gas. Towards the end of this shift, patient has started to have small soft formed stools. Pressure reducing mattress in use. Patient repositioned Q2. Purewick in place. PICC line flushes well with good blood return. No s/s of complications at this time. Patient currently resting in bed. Denies any pain, discomfort, or further needs at this time. Call light in reach. Fall percautions in place.
[2021-06-24 20:00] VITALS: BP 129/33; PULSE 71; TEMP 98.2
--- NOTE | 2021-06-24 23:31 | NUR ---
Patient given PRN APAP as requested for pain to bottom. Has NG tube clamped. Denies nausea/vomiting. Has active Bowel sounds, has had 3 small BMs so far this shift. Did not like purewick, taken out. Dressing to bottom changed. Has dressings to bilateral heels as well with specialty boots on. Surgical site to left hip, edges well approximated. In bed with call light within reach. Bed alarm on.
[2021-06-25 00:22] VITALS: BP 121/55; PULSE 72; TEMP 98.1
[2021-06-25 04:35] VITALS: BP 131/51; PULSE 67; TEMP 98.2
--- NOTE | 2021-06-25 05:58 | NUR ---
Patient has had multiple soft formed BMs during the night, with a few hard pieces of stool. Incontinent cares provided. Did not like purewick, not put back in as requested. Denies nausea and upset stomach. NG tube remains clamped, but still does not want staff to pull NG tube at this time. Voices no questions, needs, or concerns. In bed with call light within reach.
[2021-06-25 06:48] LABS: BASO % 0.2 % (0.0-2.0); EOS % 0.7 % (0.0-4.0); GRAN % 85.6 % (42.2-75.2); HEMOGLOBIN 11.2 g/dl (12.5-16.0); LYMPH # 0.4 K/mm3 (1.2-3.4); MEAN CORPUSCULAR HEMOGLOBIN 30 pg (27-31); MEAN CORPUSCULAR HGB CONC 33 g/dl (33.0-37.0); MEAN PLATELET VOLUME 10.4 fl (7.4-10.4); MONO # 0.4 K/mm3 (0.1-0.6); MONO % 6.6 % (1.7-9.3); PLATELET COUNT 204 K/mm3 (130-400); RED BLOOD COUNT 3.76 M/mm3 (4.10-5.30); REDCELL DISTRIBUTION WIDTH-CV 15.4 % (11.5-14.5)
[2021-06-25 07:05] LABS: ALBUMIN 1.9 gm/dL (3.4-4.8); CALCIUM 7.6 mg/dL (8.4-10.2); CREATININE, serum 1.92 mg/dL (0.57-1.11); PHOSPHOROUS 2.6 mg/dL (2.3-4.7)
[2021-06-25 07:08] LABS: HEMATOCRIT 34.4 % (37.0-47.0); MEAN CELL VOLUME 92 fl (80.0-100.0)
[2021-06-25 08:29] VITALS: BP 134/59; PULSE 72; TEMP 97.5
--- NOTE | 2021-06-25 09:15 | NUR ---
PT LAYING ON RIGHT SIDE ON ROOM AIR. PT STATES THAT SHE IS NOT HAVING ANY PAIN. HEEL BOOTS ARE ON. NG TUBE IS IN AND CLAMPED. PT STATES "I AM SO NERVOUS TO GET THIS OUT CAUSE IT WAS TERRIBLE GETTING IT IN." PT DIET ADVACNED TO FIBER DIET. PT STATES THAT SHE WANTS TO TRY SOME OF IT AND THEN IF SHE DOES OK WITH IT THEN SHE WILL BE REASY TO GET THE NG TUBE OUT. PT STATES THAT SHE IS NOT HAVING ANY N/V. PT IS CLEAN AND DRY AT THIS TIME. PT STATES NO NEEDS AT THIS TIME. CALL LIGHT IS WITHIN REACH.
[2021-06-25 12:21] VITALS: BP 124/50; PULSE 74; TEMP 97.7
--- NOTE | 2021-06-25 15:26 | NUR ---
PT STATES THAT SHE IS NOT HAVING ANY N/V AND IS READY TO HAVE NG TUBE REMOVED. BAM LOVETT WAS THERE WHEN IT WAS PUT IN AND PT STATES THAT SHE FEELS MORE COMFORTABLE IF IT WAS REMOVED BY HER. BAM LOVETT REMOVED NG TUBE. PT TOLERATED WELL. PT STATES "THIS FEELS SO MUCH BETTER."
[2021-06-25 16:43] VITALS: BP 102/66; PULSE 80; TEMP 97.9
--- NOTE | 2021-06-25 17:57 | NUR ---
PT LAYING ON RIGHT SIDE ON ROOM AIR. PT STATES THAT SHE IS NOT HAVING ANY PAIN OR DISCOMFORT AT THIS TIME. PT IS CLEAN AND DRY AT THIS TIME. PT STATES THAT HER HANDS ARE COLD AND SHE WOULD LIKE TO PUT HER GLOVES ON. ASSISTED PT TO DO SO. I ALSO OFFERED PT A WARM BLANET AND PT STATES THAT SHE WOULD LIKE TO HAVE ONE. GAVE BLANKET TO PT. PT STATES NO OTHER NEEDS AT THIS TIME. CALL LIGHT IS WITHIN REACH.
[2021-06-25 19:51] VITALS: BP 120/48; PULSE 73; TEMP 98.3
--- NOTE | 2021-06-25 22:49 | NUR ---
Patient has been incontinent of bowel and bladder. Incontinent cares provided. Dressing changed to bottom. Dressings to bilateral heels CDI. Redness bilateral hips. Left hip surgical site open to air, edges well approximated. Denies nausea and upset stomach. Voices no questions, needs, or concerns at this time. In bed with call light within reach.
[2021-06-26] VITALS (7 sets, daily range): BP systolic 116–129; BP diastolic 32–60; PULSE 65–75; TEMP 98–98.2
--- NOTE | 2021-06-26 06:04 | NUR ---
Patient continued to have soft formed BMs during the night. Denies pain and discomfort. Dressing changed to bottom. Powder applied to redness/excoriation. Voices no questions, needs, or concerns at this time. In bed with call light within reach. Bed alarm on.
[2021-06-26 07:01] LABS: BASO % 0.2 % (0.0-2.0); EOS # 0.1 K/mm3 (0.0-0.7); GRAN # 4.1 K/mm3 (1.4-6.5); GRAN % 82.2 % (42.2-75.2); HEMOGLOBIN 11.1 g/dl (12.5-16.0); LYMPH # 0.4 K/mm3 (1.2-3.4); LYMPH % 7.8 % (20.0-51.0); MEAN CELL VOLUME 94 fl (80.0-100.0); MEAN CORPUSCULAR HEMOGLOBIN 30 pg (27-31); MEAN CORPUSCULAR HGB CONC 32 g/dl (33.0-37.0); MEAN PLATELET VOLUME 10.8 fl (7.4-10.4); MONO # 0.4 K/mm3 (0.1-0.6); PLATELET COUNT 166 K/mm3 (130-400); RED BLOOD COUNT 3.74 M/mm3 (4.10-5.30)
[2021-06-26 07:14] LABS: ALBUMIN 1.8 gm/dL (3.4-4.8); CALCIUM 7.8 mg/dL (8.4-10.2); CREATININE, serum 2.04 mg/dL (0.57-1.11); PHOSPHOROUS 2.6 mg/dL (2.3-4.7); POTASSIUM 3.4 mmol/L (3.5-4.5)
--- NOTE | 2021-06-26 11:23 | NUR ---
PT LAYING ON RIGHT SIDE IN BED ON ROOM AIR. THERAPY AT BEDSIDE TO GET PT UP OUT OF BED AND INTO WHEELCHAIR. PT WAS ABLE TO MOVE OVER VIA 1 ASSIST. PT UP IN WHEELCHAIR TO EAT BREAKFAST. PT STATES NO PAIN OR CONCERNS AT THIS TIME "IM JUST READY TO EAT MY BREAKFAST NOW" PT DOES HAVE HEEL BOOT ON. WAS CLEANED AND DRY. CALL LIGHT IN REACH.
--- NOTE | 2021-06-26 18:18 | NUR ---
PT STATES THAT SHE HAS BEEN INCONT OF STOOL. PT DID HAVE LARGE AMOUNTS OF BROWN SOFT STOOL. PT BOTTOM IS RED AND BROKEN DOWN. BARRIER CREAM WAS APPLIED. OFFERED TO GET PT UP TO CHAIR AND PT REFUSED. PT STATES "I AM SO TIRED, ALL I WANT TO DO IS JUST REST IN THE BED RIGHT NOW" PT TURNED TO RIGHT SIDE. HEEL BOOTS ARE ON. PILLOW WAS PLACED BETWEEN LEGS, BEHIND BACK AND UNDER LEFT ARM. PT STATES NO OTHER NEEDS AT THIS TIME. CALL LIGHT IS WITHIN REACH.
--- NOTE | 2021-06-27 00:38 | NUR ---
Pt alert and oriented this evening, resting on right side currently. Continuiing to turn pt every 2 hours or more. Pt reports pain in the excoriated areas (groin/bottom). Barrier cream applied, powder applied, new dressing applied, and pt turned. Shift assessment performed. Medications administered per orders and education provided. Pt tolerated medications PO with pudding. Pt denies nausea/vomiting. Pt has had 2 episodes of loose stool this evening. Maintaining incontinence care as needed. VS stable. Pt remains on room air. Pt has 2 wounds to each heel. Heels remain elevated with boots on and are wrapped in a kerlix/gauze dressing. 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 Mepelex dressing applied to sacrum and changed x2 with incontinence episodes. Applied barrier cream and ordered powder to excoriated and open wound areas. Pt reports no questions at this time, will continue to monitor.
[2021-06-27 03:04] VITALS: BP 126/44; PULSE 73; TEMP 97.6
--- NOTE | 2021-06-27 05:22 | NUR ---
No adverse events overnight. No reports of new pain, N/V, or abdominal pain overnight. Pt did have at least 3 incontinent loose stools and a void overnight. Bottom remains reddened with the sacral ulcer present. Provided frequent incontinent care and applied barrier cream, ordered powder, and a new mepelex dressing with each incontinent episode. Continued to turn pt every 2 hours or more frequently. Pt tolerated PO diet overnight. VS stable. Pt on room air. Pt resting currently. No new concerns at this time, will continue to monitor.
[2021-06-27 06:44] LABS: BASO % 0.2 % (0.0-2.0); EOS % 0.5 % (0.0-4.0); GRAN # 4.9 K/mm3 (1.4-6.5); HEMOGLOBIN 10.8 g/dl (12.5-16.0); LYMPH # 0.3 K/mm3 (1.2-3.4); LYMPH % 5.6 % (20.0-51.0); MEAN CELL VOLUME 93 fl (80.0-100.0); MEAN CORPUSCULAR HEMOGLOBIN 30 pg (27-31); MEAN CORPUSCULAR HGB CONC 32 g/dl (33.0-37.0); MEAN PLATELET VOLUME 10.4 fl (7.4-10.4); MONO # 0.3 K/mm3 (0.1-0.6); PLATELET COUNT 159 K/mm3 (130-400); RED BLOOD COUNT 3.64 M/mm3 (4.10-5.30); REDCELL DISTRIBUTION WIDTH-CV 14.7 % (11.5-14.5)
[2021-06-27 06:48] LABS: HEMATOCRIT 33.9 % (37.0-47.0)
[2021-06-27 07:05] LABS: ALBUMIN 1.7 gm/dL (3.4-4.8); CALCIUM 7.7 mg/dL (8.4-10.2); CREATININE, serum 2.15 mg/dL (0.57-1.11); PHOSPHOROUS 2.5 mg/dL (2.3-4.7); POTASSIUM 3.2 mmol/L (3.5-4.5)
--- NOTE | 2021-06-27 08:00 | NUR ---
Assessment complete. A&Ox4. Denies pain/nausea/shortness of breath. VS remain stable. Reports 6 liquid stools over batch roller operator. Noted to have a healing incision to left hip-edges well approximated. Right hip has a scab from a previous fall. Excoriation noted to groin/under bilat breasts. Powder applied. Mepilex changed to ulcerations to coccyx/buttock. Left upper arm PICC flushes well with good blood return. HDC to right chest-dressing CDI. Plan of care discussed for this shift to include meds/turning Q2H/calling for questions/concerns. Verbalizes understanding. Call light in reach. Will monitor.
[2021-06-27 08:02] VITALS: BP 128/48; PULSE 70; TEMP 97.6
--- NOTE | 2021-06-27 09:27 | NUR ---
Follow-up visit; Patient now in Isolation, Employment Evaluator/Case Manager spoke with her from the door. Patient had a difficult night, Employment Evaluator/Case Manager listened and will continue to check on her. Patient continues to try to get better and becomes discouraged with each set back, which is not unusual.
[2021-06-27 11:13] VITALS: BP 98/48; PULSE 69; TEMP 97.7
--- NOTE | 2021-06-27 11:58 | NUR ---
MERT informed that patient could potentially DC tomorrow. Updates sent to [facility]. MERT will continue to follow
[2021-06-27 15:36] VITALS: BP 156/93; PULSE 73
--- NOTE | 2021-06-27 18:20 | NUR ---
Patient had an uneventful day. Did go to dialysis this afternoon. VS remained stable. Denied pain/nausea/shortnessof breath. Left upper arm PICC flushes well with good blood return. Dressing to coccyx wound changed. Denies current needs. Call light in reach. Will monitor.
[2021-06-27 20:35] VITALS: BP 134/64; PULSE 79; TEMP 98
--- NOTE | 2021-06-27 21:00 | NUR ---
Patient is resting in bed, alert and oriented x 4, VSS. Repositioned every 2 hours. Assessment completed, medications provided. no othere needs at this time. Call light within reach.
[2021-06-28 00:08] VITALS: BP 124/53; PULSE 72; TEMP 97.4
[2021-06-28 04:05] VITALS: BP 128/49; PULSE 73; TEMP 98
--- NOTE | 2021-06-28 06:41 | NUR ---
Patient has been repositioned according to POC. She just had some few loose BM. Dressing in bottom changed. Report given to day RN.
--- NOTE | 2021-06-28 06:45 | NUR ---
Report received, assumed care for day shift.
[2021-06-28 08:02] VITALS: BP 127/35; PULSE 70; TEMP 97.6
--- NOTE | 2021-06-28 10:05 | NUR ---
Follow-up visit attempt; Patient in Isolation and on her side. Computer Equipment Installer spoke with her from her door, offering to robe up and go into her room. Wilner said she just wants Computer Equipment Installer to keep her in her prayers. Computer Equipment Installer has been praying for Wilner and will eventually robe up and go into her room and pray if she doesn't seem to be getting better.
--- NOTE | 2021-06-28 10:07 | NUR ---
Assessment complete. A&Ox4. Denies nausea/shortness of breath. C/O cramping in abdomen. States she feels as if she is going to need to have a bowel movement. Dressing changed to coccyx with alginate sheet and mepilex. [place] starch applied to groin/rectum per request-OKd by CELESTINA Frederick. Repositioned in bed with pillow support. Bilat boots removed per verbal order. Plan of care discussed to include meds/dressing change/calling for questions or concerns. Will continue to monitor.
[2021-06-28 11:37] VITALS: BP 127/59; PULSE 69; TEMP 98.1
--- NOTE | 2021-06-28 12:23 | NUR ---
Message left for Nikole at [facility] that the patient could dc today. Clinical updates faxed
[2021-06-28 16:12] VITALS: BP 121/42; PULSE 71; TEMP 97.2
--- NOTE | 2021-06-28 16:15 | NUR ---
Notified CELESTINA Frederick of elevated blood sugar. New orders received.
--- NOTE | 2021-06-28 19:00 | NUR ---
Patient continued to have large incontinent BMs over night. Irritation to bilat buttocks and groin. Hemrrhoids present with intermittent active bleeding. Has tolerated diet. VS remain stable. Turned q2h. Denies current needs. Call light in reach. Will monitor.
[2021-06-28 20:00] VITALS: BP 121/50; PULSE 69; TEMP 98.5
--- NOTE | 2021-06-28 20:00 | NUR ---
Patient is resting on her right side in bed, alert and oriented x 4, VSS. Telemetry in place. Some BM present, hygiene provided. Dressing changed in pressure ulcer. Assessment completed, meds provided. No other needs at this time. Call light within reach.
[2021-06-29 00:12] VITALS: BP 127/56; PULSE 71; TEMP 97.5
[2021-06-29 04:47] VITALS: BP 127/39; PULSE 71; TEMP 97.5
--- NOTE | 2021-06-29 05:38 | NUR ---
Patient has had a calm night. She has had some episodes of incontinent loose watery bm. Small quantities. No other issues along the night. Report will be given to day RN.
[2021-06-29 08:11] VITALS: BP 129/49; PULSE 70; TEMP 97.1
--- NOTE | 2021-06-29 08:45 | NUR ---
PT LAYING ON RIGHT SIDE IN BED WTIH 2L VIA NC ON. PT STATES THAT SHE IS TIRED THIS AM. PT IS WONDERINGA BOUT WHEN SHE WILL HAVE DIALYSIS TODAY. I TOLD PT I WOULD FIND OUT FOR HER AND LET HER KNOW. PT STATES NO PAIN OR OTHER COCNERNS AT THIS TIME. CALL LIGHT IS WITHIN REACH.
[2021-06-29] MEDS ORDERED: IMODIUM 2MG CAPS2 MG PO (11:01)
[2021-06-29] MEDS ORDERED: REMEDY ANTIFUNG85 GM TP (11:02)
[2021-06-29] MEDS ORDERED: COLESTID 1GM1 G PO (11:03)
[2021-06-29 11:48] VITALS: BP 117/43; PULSE 71; TEMP 97.1
--- NOTE | 2021-06-29 12:26 | NUR ---
Notified patient that the physicians are ready to discharge her. She made progress with therapy this morning. Patient presented with the [facility].IM form. Form explaiend and verbal consent obtained from the patient. Original placed in the patient's chart and copy provided back to the patient. SW faxed clinical updates and discharge orders to [facility]. Foreignid swab requested. Nikole with [facility] states that transportation can be arranged to pick this patient up at 1300. Confirmed that the patient has her wheelchair in the room with her. Discharge plan:Larry CRYSTAL @1300
--- NOTE | 2021-06-29 13:41 | NUR ---
CALLED REPORT TO ROSALEE AT [facility]. ALL QUESTIONS WERE ANSWERED.
== END 2021-06-29 13:50 | DRG 388 ==
LOC: COL.ER 08:48 → MEDICAL 10:54
PROVIDERS: Registered Nurse; Student in an Organized Health Care Education/Training Program; ADMIT Internal Medicine Nephrology
PROC: 5A1D70Z Performance of Urinary Filtration, Intermittent, Less than 6 Hours Per Day (ICD-10-PCS; principal; 2021-06-22)
PROC: 02HV33Z Insertion of Infusion Device into Superior Vena Cava, Percutaneous Approach (ICD-10-PCS; 2021-06-22)
DX: K56.609 Unspecified intestinal obstruction, unspecified as to partial versus complete obstruction (principal); N18.6 End stage renal disease; E43 Unspecified severe protein-calorie malnutrition; E87.2 Acidosis; E11.22 Type 2 diabetes mellitus with diabetic chronic kidney disease; I48.91 Unspecified atrial fibrillation; I27.20 Pulmonary hypertension, unspecified; K80.20 Calculus of gallbladder without cholecystitis without obstruction; L89.159 Pressure ulcer of sacral region, unspecified stage; E11.649 Type 2 diabetes mellitus with hypoglycemia without coma; Z96.651 Presence of right artificial knee joint; Z20.822 Contact with and (suspected) exposure to COVID-19; Z95.0 Presence of cardiac pacemaker; Z85.038 Personal history of other malignant neoplasm of large intestine; Z99.2 Dependence on renal dialysis; Z79.4 Long term (current) use of insulin; Z68.25 Body mass index [BMI] 25.0-25.9, adult; Z23 Encounter for immunization
CPT/HCPCS: C1751; C1892; J1644; J1815; J2405; J7070

== ENCOUNTER → 2021-07-08 | Outpatient (CLI) | payer MEDICARE, BC ==
[~2021-07-08] MED LIST changes: +COLESTID 1GM1 G PO; +REMEDY ANTIFUNG85 GM TP; +VITAMIN B12
== END ==
LOC: ZCOL.LAB 13:34
DX: T81.40XA Infection following a procedure, unspecified, initial encounter (principal)

== ENCOUNTER 2021-07-13 18:11 | Inpatient (IN) | payer MEDICARE, BC ==
[2021-07-13] VITALS (78 sets, daily range): BP systolic 87–108; BP diastolic 41–50; PULSE 69; TEMP 94.1; O2SAT 78–97
[~2021-07-13] VITALS: Ht 167.6 cm; Wt 70.9 kg
[2021-07-13 19:07] LABS: HEMOGLOBIN 11.2 g/dl (12.5-16.0); MEAN CELL VOLUME 92 fl (80.0-100.0); MEAN CORPUSCULAR HEMOGLOBIN 28 pg (27-31); MEAN CORPUSCULAR HGB CONC 31 g/dl (33.0-37.0); MEAN PLATELET VOLUME 10.4 fl (7.4-10.4); PLATELET COUNT 153 K/mm3 (130-400); RED BLOOD COUNT 3.97 M/mm3 (4.10-5.30); REDCELL DISTRIBUTION WIDTH-CV 15.7 % (11.5-14.5)
[2021-07-13 19:08] LABS: HEMATOCRIT 36.5 % (37.0-47.0)
[2021-07-13 19:22] LABS: BAND 3 % (0-10); HYPOCHROMIA 3+; NEUTROPHILS 94 % (42.0-75.2); NUCLEATED RED BLOOD CELL 1 (0-6); PLATELET ESTIMATE NORMAL (NORMAL)
[2021-07-13 19:23] LABS: ANISOCYTOSIS 1+; BURR CELLS 1+
[2021-07-13 19:25] LABS: ALBUMIN 1.3 gm/dL (3.4-4.8); BILIRUBIN,TOTAL 0.5 mg/dL (0.2-1.2); CALCIUM 8.5 mg/dL (8.4-10.2); CREATININE, serum 2.69 mg/dL (0.57-1.11); POTASSIUM 4.9 mmol/L (3.5-4.5); TOTAL PROTEIN 4.8 gm/dL (6.2-8.1)
[2021-07-13] MEDS ORDERED: CIPRO 500MG TA500 MG PO (19:57)
[2021-07-13] MEDS ORDERED: DEMADEX 20MG20 M1 PO (19:58)
[2021-07-13] MEDS ORDERED: DULCOLAX S10 MG/SUPP RC (19:58)
[2021-07-13] MEDS ORDERED: PROBACAP1 EACH PO (19:59)
[2021-07-13] MEDS ORDERED: LANOXIN 0.120.125 MG PO (20:00)
[2021-07-13] MEDS ORDERED: REVATIO20 MG PO (20:03)
[2021-07-13] MEDS ORDERED: VITAMIN D31000 I1 PO (20:03)
[2021-07-13] MEDS ORDERED: VITAMIN C500 MG PO (20:03)
[2021-07-13] MEDS ORDERED: ULTRAM 50MG TAB50 MG PO (20:04)
[2021-07-13] MEDS ORDERED: TUCKS50% TP (20:05)
--- NOTE | 2021-07-13 22:45 | NUR ---
PT TEMP UNABLE TO READ VIA AXILLARY OR ORAL. RECTAL PROBE PLACED, TEMP 93.7-94.1. BAIRHUGGER PLACED ON PT PER DR. GOLDMAN. WILL CONTINUE TO MONITOR.
--- NOTE | 2021-07-13 23:33 | NUR ---
PT RECEIVED FROM ER AT 2230 VIA STRETCHED. LEVOPHED CURRENTLY INFUSING AT A RATE OF 0.5MCG/KG/MIN/13.3 ML/HR TO L EJ PIV. PER ER REPORT, ATTEMPT TO PLACE CENTRAL LINE UNSUCCESSFUL X2. GROIN DRSG IN PLACE TO L FEM, CDI. PT ALERT AND ORIENTED, ABLE TO ANSWER QUESTIONS AND FOLLOW COMMANDS. REPORTS PAIN TO BLE, HEELS. BILAT ANKLE KERLEX DRSGS IN PLACE, NOT REMOVED AT THIS TIME. BILAT HIPS WITH MEPELEX DRSGS, AND DRSG IN PLACE WITH PACKING TO SACRUM/COCCYX. PT WEARING GLOVES, FINGERS TO SECOND KNUCKLE PURPLE DISCOLORATION, COLD TO TOUCH. PT REPORTS HAS BEEN LIKE THIS. CURRENT PLAN PER DR. GOLDMAN IS TO TRANSFER PT OUT TO [facility] TO HIGHER LEVEL OF CARE. FRANTZ JASON NOTIFIED. WILL CONTINUE TO MONITOR.
[2021-07-14] VITALS: BP 101/42; PULSE 71; TEMP 94.5
--- NOTE | 2021-07-14 00:17 | NUR ---
PT LEFT VIA EMS STRETCHER AT 0000 TRANSFER TO [facility]. CALLED REPORT TO RN AT THIS TIME. PT STABLE AT TRANSFER, BP 100/48. CONTINUES TO BE AAOX3.
== END 2021-07-14 00:15 | disposition short-term general hospital (02) | DRG 312 ==
LOC: COL.ER 18:11 → ICU 21:15
PROVIDERS: Personal Emergency Response Attendant; ADMIT Internal Medicine Nephrology
DX: I95.3 Hypotension of hemodialysis (principal); L97.429 Non-pressure chronic ulcer of left heel and midfoot with unspecified severity; L97.419 Non-pressure chronic ulcer of right heel and midfoot with unspecified severity; E87.70 Fluid overload, unspecified; L98.429 Non-pressure chronic ulcer of back with unspecified severity; N18.9 Chronic kidney disease, unspecified; I48.91 Unspecified atrial fibrillation; E11.22 Type 2 diabetes mellitus with diabetic chronic kidney disease; Z99.2 Dependence on renal dialysis; Z95.0 Presence of cardiac pacemaker; Z88.8 Allergy status to other drugs, medicaments and biological substances; Z88.5 Allergy status to narcotic agent
CPT/HCPCS: J0456; J0696; J7050; J7060